=== PATIENT | female | born 1940 | race Hispanic/Latino ===

== ENCOUNTER 2016-11-28 07:20 | Emergency (ER) | payer MEDICARE, OTHER ==
[2016-11-28 07:20] VITALS: BMI 35.9
--- NOTE | 2016-11-28 07:46 | ED PDOC ---
Arrival/HPI - General Chief Complaint: Shortness Of Breath Time Seen by Provider: 11/28/16 07:25 Historian: Patient - History of Present Illness Narrative History of Present Illness (Text): 11/28/16 07:32 A 76 year old female, whose past medical history includes hyperkalemia and chronic shortness of breath, presents to the emergency department for worsening shortness of breath, which began early this morning. The patient denies any fever, chest pain, abdominal pain, neck pain, or any other complaints at this time. Time/Duration: 4-6 hours Symptom Onset: Sudden Symptom Course: Unchanged Activities at Onset: Rest, Light Context: Home Past Medical History - Provider Review Nursing Documentation Reviewed: Yes - Infectious Disease Hx of Infectious Diseases: None - Reproductive Menopause: Yes - Cardiac Hx Cardiac Disorders: Yes (mi) Hx Hypertension: Yes - Pulmonary Hx Respiratory Disorders: No - Neurological Hx Paralysis: No - Endocrine/Metabolic Hx Diabetes Mellitus Type 2: Yes Hx Hypothyroidism: Yes - Hematological/Oncological Hx Blood Transfusions: No Hx Blood Transfusion Reaction: No - Musculoskeletal/Rheumatological Hx Arthritis: Yes - Gastrointestinal Hx Gastrointestinal Disorders: Yes (colitis) Hx Gastroesophageal Reflux: Yes - Psychiatric Hx Emotional Abuse: No Hx Physical Abuse: No Hx Substance Use: No - Past Surgical History Past Surgical History: No Previous - Surgical History Hx Cardiac Catheterization: Yes Hx Coronary Stent: Yes (x1 5 yrs ago) Other/Comment: r adrenal gland removed, partial thyroidectomy, spinal fusion, toenail sx, egd x 2 colonoscopy x2 last 2014 - Anesthesia Hx Anesthesia: Yes Hx Anesthesia Reactions: No Hx Malignant Hyperthermia: No - Suicidal Assessment Feels Threatened In Home Enviroment: No Family/Social History - Physician Review Nursing Documentation Reviewed: Yes Family/Social History: Unknown Family HX Smoking Status: Former Smoker Hx Alcohol Use: No Hx Substance Use: No Hx Substance Use Treatment: No Allergies/Home Meds Allergies/Adverse Reactions: Allergies doxycycline Allergy (Intermediate, Verified 11/28/16 07:29) ITCHING indomethacin Allergy (Intermediate, Verified 11/28/16 07:29) NAUSEA Home Medications: Home Meds Medication Instructions Recorded Confirmed Rosuvastatin Calcium [Crestor] 5 mg PO HS 09/13/11 11/28/16 Cholecalciferol [Vitamin D] 1,000 iu PO DAILY 10/21/14 11/28/16 Dexlansoprazole [Dexilant] 60 mg PO QAM 10/21/14 11/28/16 Levothyroxine Sodium [Levoxyl] 0.075 mg PO DAILY 10/21/14 11/28/16 Magnesium Oxide [Pharmassure 1,500 mg PO DAILY 10/21/14 11/28/16 Magnesium] Mesalamine [Lialda] 1.2 gm PO Q12 02/11/15 11/28/16 Allopurinol [Zyloprim] 300 mg PO DAILY 06/28/15 11/28/16 Aspirin [Ecotrin] 81 mg PO DAILY 06/28/15 11/28/16 Chlorthalidone [Hygroton] 1.25 mg PO MWF 06/28/15 11/28/16 Insulin Human (NPH)/Regular 40 units SC ACB 06/28/15 06/30/15 [Novolin 70/30 (70/30 units/ml) 10 ml] Metoprolol Succinate [Toprol XL] 25 mg PO BID 06/28/15 11/28/16 Telmisartan [Micardis] 80 mg PO DAILY 06/28/15 11/28/16 Metoprolol [Lopressor] 25 mg PO BID 11/28/16 11/28/16 Patiromer Calcium Sorbitex 8.4 gm PO DAILY 11/28/16 11/28/16 [Velt[place]] Sodium Bicarbonate Tab 650 mg PO BID 11/28/16 11/28/16 Review of Systems - Review of Systems Constitutional: absent: Fevers Respiratory: SOB Cardiovascular: absent: Chest Pain Gastrointestinal: absent: Abdominal Pain Musculoskeletal: absent: Neck Pain Physical Exam Vital Signs Reviewed: Yes Vital Signs Temp Pulse Resp BP Pulse Ox 11/28/16 14:22 98 F 73 16 140/79 97 11/28/16 12:00 67 16 151/68 H 97 11/28/16 10:00 70 18 180/88 H 98 11/28/16 08:31 16 11/28/16 07:29 98.1 F 77 17 192/79 H 97 Temperature: Afebrile Blood Pressure: Hypertensive Pulse: Regular Respiratory Rate: Normal Appearance: Positive for: Well-Appearing, Non-Toxic, Comfortable Pain Distress: None Mental Status: Positive for: Alert and Oriented X 3 - Systems Exam Head: Present: Atraumatic, Normocephalic Pupils: Present: PERRL Extroacular Muscles: Present: EOMI Mouth: Present: Moist Mucous Membranes Neck: Present: Normal Range of Motion Respiratory/Chest: Present: Good Air Exchange, Other (crackles at the bases). No: Respiratory Distress, Accessory Muscle Use Cardiovascular: Present: Regular Rate and Rhythm, Normal S1, S2. No: Murmurs Abdomen: Present: Normal Bowel Sounds. No: Tenderness, Distention, Peritoneal Signs Upper Extremity: Present: Normal Inspection. No: Cyanosis, Edema Lower Extremity: Present: Normal Inspection. No: Edema Neurological: Present: GCS=15, CN II-XII Intact, Speech Normal Skin: Present: Warm, Dry, Normal Color. No: Rashes Psychiatric: Present: Alert, Oriented x 3, Normal Insight, Normal Concentration Medical Decision Making ED Course and Treatment: 11/28/16 07:45 Impression: A 76 year old female with shortness of breath Differential Diagnosis included but are not limited to: ro chf pna, pe Plan: -- EKG -- Chest X-ray -- Labs -- Urinalysis -- Reassess and disposition Progress Notes: EKG: Ordered, reviewed, and independently interpreted the EKG. Rate : 74 BPM Rhythm : Normal sinus Interpretation : First degree AV Evaristo Comparison : Nonspecific ST/T changes. Report Date : 11/28/2016 08:37:45 Chest X-ray Pyrotechnics Press Tender : Tristian Maldonado MD HISTORY:sob COMPARISON:Portable chest 06/28/2015. FINDINGS: LUNGS:No active pulmonary disease. PLEURA:No significant pleural effusion identified, no pneumothorax apparent. CARDIOVASCULAR:Likely technical magnification of the cardiac silhouette rather than intrinsic cardiomegaly. No pulmonary vascular derangement. Clinically correlate further. OSSEOUS STRUCTURES:No significant abnormalities. VISUALIZED UPPER ABDOMEN:Normal. OTHER FINDINGS:None. IMPRESSION:No acute pulmonary disease appreciable. Prominent cardiac silhouette may be a function of technical magnification rather than intrinsic cardiomegaly. Clinically correlate. 11/28/16 13:39 Upon re-evaluation, the patient states she is feeling better and is smiling. She is requesting to be discharged, but she is still pending VQ scan, The patient agrees to stay in the emergency department until results. pt was offered observation admission several times in emergency room but continues to decline. askinf for dc 11/28/16 14:38 - Lab Interpretations Lab Results: 11/28/16 08:25 11/28/16 08:25 Lab Results 11/28/16 09:04: D-Dimer, Quantitative 309 H 11/28/16 08:25: Sodium 141, Potassium 4.9, Chloride 107, Carbon Dioxide 22, Anion Gap 17, BUN 29 H, Creatinine 1.5 H, Est GFR ( Amer) 41, Est GFR ( Non-Af Amer) 34, Random Glucose 196 H, Calcium 9.9, Magnesium 1.3 L, Total Bilirubin 0.5, AST 54 H, ALT 60 H, Alkaline Phosphatase 83, Lactate Dehydrogenase 504, Total Creatine Kinase 166, Troponin I < 0.01, NT-Pro-B Natriuret Pep 202, Total Protein 7.6, Albumin 4.3, Globulin 3.3, Albumin/ Globulin Ratio 1.3 11/28/16 08:25: Urine Color Yellow, Urine Appearance Clear, Urine pH 6.0, Ur Specific [place] 1.020, Urine Protein 30 H, Urine Glucose (UA) Negative, Urine Ketones Negative, Urine Blood Negative, Urine Nitrate Negative, Urine Bilirubin Negative, Urine Urobilinogen 0.2, Ur Leukocyte Esterase Trace H, Urine RBC Negative, Urine WBC 1 - 3, Ur Epithelial Cells 1 - 3, Urine Bacteria Few 11/28/16 08:25: PT 11.8, INR 1.07, APTT 28.7 11/28/16 08:25: WBC 5.5, RBC 3.96, Hgb 12.2, Hct 36.6, MCV 92.4, MCH 30.8, MCHC 33.3, RDW 13.8, Plt Count 176, MPV 9.8, Gran % 58.3, Lymph % (Auto) 27.7, [place] % (Auto) 11.0 H, Eos % (Auto) 2.4, Baso % (Auto) 0.6, Gran # 3.18, Lymph # 1.5, [place] # 0.6, Eos # 0.1, Baso # 0.03 - RAD Interpretation Radiology Orders: 11/28/16 07:35 CHEST PORTABLE [RAD] Stat 11/28/16 11:35 LUNG PERF & VENT SCAN [NM] Stat - Medication Orders Current Medication Orders: Discontinued Medications Acetaminophen (Tylenol 325mg Tab) 975 mg PO STAT STA Stop: 11/28/16 09:23 Last Admin: 11/28/16 09:56 Dose: 975 mg MAR Pain/Vitals Document 11/28/16 09:56 [facility] [place] (Rec: 11/28/16 09:56 [facility] [place] [id number]) Pain Reassessment Is This A Pain ReAssessment? Yes Sleep Is patient sleeping during reassessment? No Presence of Pain Presence of Pain Yes Pain Scale Used Pain Scale Used Numeric Location Pain Location Body Site Back Intensity 3 Scale Used Numeric - Scribe Statement The provider has reviewed the documentation as recorded by the Jerica Finnegan Provider Scribe Attestation: All medical record entries made by the Jerica were at my direction and personally dictated by me. I have reviewed the chart and agree that the record accurately reflects my personal performance of the history, physical exam, medical decision making, and the department course for this patient. I have also personally directed, reviewed, and agree with the discharge instructions and disposition. Disposition/Present on Arrival - Present on Arrival Any Indicators Present on Arrival: No History of DVT/PE: No History of Uncontrolled Diabetes: No Urinary Catheter: No History of Decub. Ulcer: No History Surgical Site Infection Following: None - Disposition Have Diagnosis and Disposition been Completed?: Yes Diagnosis: Acute dyspnea Disposition: HOME/ ROUTINE Disposition Time: 02:00 Condition: STABLE Discharge Instructions (ExitCare): Dyspnea (ED) Additional Instructions: please follow up with your doctor. reutnr to emergency room with worsening symptoms or concerns. you are declining overnight observation in hospital, however you are able to return to emergency room at any point with any concern Forms: [employer] (Czech)
[2016-11-28 08:35] LABS: BASO # 0.03 K/mm3 (0.0-2.0); BASO % 0.6 % (0.0-3.0); EOS # 0.1 (0.0-0.7); EOS % 2.4 % (1.5-5.0); GRAN # 3.18 (1.4-6.5); GRAN % 58.3 % (50.0-68.0); HEMATOCRIT 36.6 % (36.0-48.0); LYMPH # 1.5 (1.2-3.4); LYMPH % 27.7 % (22.0-35.0); MEAN CELL VOLUME 92.4 fl (80.0-105.0); MEAN CORPUSCULAR HEMOGLOBIN 30.8 pg (25.0-35.0); MEAN CORPUSCULAR HGB CONC 33.3 g/dl (31.0-37.0); MEAN PLATELET VOLUME 9.8 fl (7.0-11.0); MONO # 0.6 (0.1-0.6); RED CELL DISTRIBUTION WIDTH 13.8 % (11.5-14.5); WHITE BLOOD COUNT 5.5 10^3/ul (4.5-11.0)
--- NOTE | 2016-11-28 08:39 | RAD ---
HISTORY: sob COMPARISON: Portable chest 06/28/2015. FINDINGS: LUNGS: No active pulmonary disease. PLEURA: No significant pleural effusion identified, no pneumothorax apparent. CARDIOVASCULAR: Likely technical magnification of the cardiac silhouette rather than intrinsic cardiomegaly. No pulmonary vascular derangement. Clinically correlate further. OSSEOUS STRUCTURES: No significant abnormalities. VISUALIZED UPPER ABDOMEN: Normal. OTHER FINDINGS: None. IMPRESSION: No acute pulmonary disease appreciable. Prominent cardiac silhouette may be a function of technical magnification rather than intrinsic cardiomegaly. Clinically correlate.
[2016-11-28 08:45] LABS: URINE BILIRUBIN NEGATIVE (NEGATIVE); URINE BLOOD NEGATIVE (NEGATIVE); URINE GLUCOSE (UA) NEGATIVE (NEGATIVE); URINE KETONE NEGATIVE (NEGATIVE); URINE LEUKOCYTE ESTERASE TRACE Leu/uL (NEGATIVE); URINE PROTEIN 30 mg/dL (<30 mg/dL); URINE UROBILINOGEN 0.2 E.U./dL (<1 E.U./dL)
[2016-11-28 08:47] LABS: INR 1.07 (0.93-1.08); PARTIAL THROMBOPLASTIN TIME 28.7 Seconds (25.1-36.5)
[2016-11-28 08:48] LABS: URINE APPEARANCE CLEAR (CLEAR); URINE COLOR YELLOW (YELLOW)
[2016-11-28 08:51] LABS: ALB/GLOB RATIO 1.3 (1.1-1.8); ALKALINE PHOSPHATASE 83 U/L (38-126); ALT/SGPT 60 U/L (7-56); AST/SGOT 54 U/L (14-36); BILIRUBIN,TOTAL 0.5 mg/dL (0.2-1.3); BLOOD UREA NITROGEN 29 mg/dL (7-21); CALCIUM 9.9 mg/dL (8.4-10.5); CARBON DIOXIDE 22 mmol/L (21-33); CHLORIDE 107 mmol/L (98-107); GFR AFRICAN-AMERICAN 41; GLUCOSE,RANDOM 196 mg/dL (70-110); MAGNESIUM 1.3 mg/dL (1.7-2.2); POTASSIUM 4.9 mmol/L (3.6-5.0); SODIUM 141 mmol/L (132-148); TOTAL PROTEIN 7.6 g/dL (5.8-8.3)
[2016-11-28 08:57] LABS: URINE BACTERIA FEW (NEG); URINE RBC NEGATIVE /hpf (0-2)
[2016-11-28 09:03] LABS: TROPONIN I < 0.01 ng/mL
[2016-11-28 12:43] VITALS: RESP 16; O2SAT 97
--- NOTE | 2016-11-28 12:58 | CARD ---
APPROVED REPORT EKG Measurement Heart [id number] <Conclusion> Sinus rhythm with 1st degree AV block Left axis deviation PRWP IVCD Possible ASMI, age unknown
--- NOTE | 2016-11-28 14:07 | NM ---
COMPARISON: Chest radiograph 11/28/2016. TECHNIQUE: 31.0 mCi technetium 99-m Xe-133 Gas. 3.6 mCI technetium 99-m MAA administered intravenously. FINDINGS: VENTILATION COMPONENT: Normal. Deposition of the inhalation isotope at the trachea is identified as well as ingestion into the stomach. PERFUSION COMPONENT: No perfusion mismatches identified. IMPRESSION: Lowprobability ventilation perfusion scan for pulmonary embolism.
[2016-11-28 14:22] VITALS: BP 140/79; PULSE 73; TEMP 98
== END 2016-11-28 14:23 | disposition home or self-care (01) ==
LOC: ED 07:20
DX: R06.00 Dyspnea, unspecified (principal); E03.9 Hypothyroidism, unspecified; E11.9 Type 2 diabetes mellitus without complications; Z79.4 Long term (current) use of insulin; E87.5 Hyperkalemia; I10 Essential (primary) hypertension; I44.0 Atrioventricular block, first degree; Z87.891 Personal history of nicotine dependence; Z79.82 Long term (current) use of aspirin
CPT/HCPCS: 71010; 78582; 80053; 81001; 82550; 83615; 83735; 83880; 84484; 85025; 85378; 85610; 85730; 87086; 93005; 99284; A9540

== ENCOUNTER 2017-12-30 08:57 | Observation (INO) | payer MEDICARE ==
[2017-12-30 09:01] VITALS: BMI 37.8
--- NOTE | 2017-12-30 09:20 | ED PDOC ---
Arrival/HPI - General Chief Complaint: Chest Pain Historian: Patient - History of Present Illness Narrative History of Present Illness (Text): 12/30/17 09:12 77 y/o female, pmh including htn/hld/dm/cad with stent/hypothyroidism/CHF with EF 35% in 2016/colitis, allergic to indomethacin and doxycycline, c/o lt. sided chest pain started 2:30am this morning which woke her up from sleeping, aching and squeezing pain, on and off, worsening with exertion when came to the ER by walking, no palpitation, no recent traveling, no recent URI, no night sweat, no rash, no dizziness, no change in vision, no other medical or psychological complaints. Past Medical History - Provider Review Nursing Documentation Reviewed: Yes - Infectious Disease Hx of Infectious Diseases: None - Cardiac Hx Cardiac Disorders: Yes (mi) Hx Hypertension: Yes - Pulmonary Hx Respiratory Disorders: No - Neurological Hx Paralysis: No - Endocrine/Metabolic Hx Diabetes Mellitus Type 2: Yes Hx Hypothyroidism: Yes - Hematological/Oncological Hx Blood Transfusions: No Hx Blood Transfusion Reaction: No - Musculoskeletal/Rheumatological Hx Arthritis: Yes - Gastrointestinal Hx Gastrointestinal Disorders: Yes (colitis) Hx Gastroesophageal Reflux: Yes - Psychiatric Hx Emotional Abuse: No Hx Physical Abuse: No Hx Substance Use: No - Past Surgical History Past Surgical History: No Previous - Surgical History Hx Cardiac Catheterization: Yes Hx Coronary Stent: Yes (x1 5 yrs ago) Other/Comment: r adrenal gland removed, partial thyroidectomy, spinal fusion, toenail sx, egd x 2 colonoscopy x2 last 2014 - Anesthesia Hx Anesthesia: Yes Hx Anesthesia Reactions: No Hx Malignant Hyperthermia: No - Suicidal Assessment Feels Threatened In Home Enviroment: No Family/Social History - Physician Review Nursing Documentation Reviewed: Yes Family/Social History: Unknown Family HX Smoking Status: Former Smoker Hx Alcohol Use: No Hx Substance Use: No Hx Substance Use Treatment: No Allergies/Home Meds Allergies/Adverse Reactions: Allergies doxycycline Allergy (Intermediate, Verified 12/30/17 09:21) ITCHING indomethacin Allergy (Intermediate, Verified 12/30/17 09:21) NAUSEA Home Medications: Home Meds Medication Instructions Recorded Confirmed Cholecalciferol [Vitamin D] 1,000 iu PO DAILY 10/21/14 12/30/17 Dexlansoprazole [Dexilant] 60 mg PO QAM 10/21/14 12/30/17 Levothyroxine Sodium [Levoxyl] 0.075 mg PO DAILY 10/21/14 12/30/17 Magnesium Oxide [Pharmassure 1,500 mg PO DAILY 10/21/14 12/30/17 Magnesium] Mesalamine [Lialda] 1.2 gm PO Q12 02/11/15 12/30/17 Allopurinol [Zyloprim] 300 mg PO DAILY 06/28/15 12/30/17 Aspirin [Ecotrin] 81 mg PO DAILY 06/28/15 12/30/17 Chlorthalidone [Hygroton] 1.25 mg PO MWF 06/28/15 12/30/17 Insulin Human (NPH)/Regular 45 units SC ACB 06/28/15 12/30/17 [Novolin 70/30 (70/30 units/ml) 10 ml] Telmisartan [Micardis] 80 mg PO DAILY 06/28/15 12/30/17 Metoprolol [Lopressor] 50 mg PO BID 11/28/16 12/30/17 Review of Systems - Review of Systems Constitutional: absent: Fatigue, Fevers Eyes: absent: Vision Changes ENT: absent: Hearing Changes Respiratory: absent: SOB, Cough Cardiovascular: Chest Pain Gastrointestinal: absent: Abdominal Pain, Nausea, Vomiting Musculoskeletal: absent: Arthralgias, Back Pain Skin: absent: Rash, Pruritis Neurological: absent: Headache, Dizziness Psychiatric: absent: Anxiety, Depression, Suicidal Ideation Physical Exam Vital Signs Reviewed: Yes Vital Signs Temp Pulse Resp BP Pulse Ox 12/30/17 09:01 97.6 F 70 18 188/90 H 99 Temperature: Afebrile Blood Pressure: Hypertensive Pulse: Regular Respiratory Rate: Normal Appearance: Positive for: Well-Appearing, Non-Toxic, Comfortable Pain Distress: None Mental Status: Positive for: Alert and Oriented X 3 - Systems Exam Head: Present: Atraumatic, Normocephalic Pupils: Present: PERRL Extroacular Muscles: Present: EOMI Conjunctiva: Present: Normal Mouth: Present: Moist Mucous Membranes Neck: Present: Normal Range of Motion Respiratory/Chest: Present: Clear to Auscultation, Good Air Exchange. No: Respiratory Distress, Accessory Muscle Use, Wheezes, Decreased Breath Sounds, Rales, Retracting, Rhonchi, Tachypneic, Tender to Palpation Cardiovascular: Present: Regular Rate and Rhythm, Normal S1, S2, Other (1+ pedal edema noted bilaterally on the lower extremities. ). No: Murmurs Abdomen: No: Tenderness, Distention, Peritoneal Signs Back: Present: Normal Inspection Upper Extremity: Present: Normal Inspection. No: Cyanosis, Edema Lower Extremity: Present: Normal Inspection. No: Edema Neurological: Present: GCS=15, CN II-XII Intact, Speech Normal, Motor Func Grossly Intact, Gait Normal, Memory Normal Skin: Present: Warm, Dry, Normal Color. No: Rashes Psychiatric: Present: Alert, Oriented x 3, Normal Insight, Normal Concentration Medical Decision Making ED Course and Treatment: 12/30/17 09:14 -labs -ekg -cxr -aspirin/morphine/nitro -observe and reassess 12/30/17 10:54 -EKG: SR @ 66 BPM, 1st degree AV block, no ST elevation or depression, no t wave inversion. -CXR No focal consolidation. Cardiomegaly. -Labs show no acute findings except BUN 27 from 29 and creatine 1.3 from 1.5 -Mg is 1.3 (mgsulfate 2gm IV ordered) -BNP is within normal limit -Trop is negative for 1st set, needs trending -UA ordered and pending result -HEART score is MODERATE: 5 -Pt. feels symptoms controlled after the aspirin/nitro/morphine, clinically signs and symptoms/treatment concerning for ACS, will admit for 24 hours with associate creative director consult. -Paging Dr. Bernabe, covering for Dr. Rodarte for admission for chest pain r/o ACS. 12/30/17 11:39 -I spoke to Dr. Lin, covering for Dr. Bernabe, discussed about the case/labs/radiology results and treatment, agreed to admit to Dr. Bernabe service with Dr. Guadarrama on the routine consult, consult ordered. - RAD Interpretation Radiology Orders: HISTORY: chest pain COMPARISON: Chest x-ray performed 11/28/16 TECHNIQUE: Chest, one view. FINDINGS: LUNGS: No focal consolidation. Please note that chest x-ray has limited sensitivity for the detection of pulmonary masses. PLEURA: No significant pleural effusion identified. No definite pneumothorax . CARDIOVASCULAR: Cardiomegaly. No significant atherosclerotic calcification present. OSSEOUS STRUCTURES: Degenerative changes of the spine. 9 mm sclerotic focus, proximal humerus, likely bone island. VISUALIZED UPPER ABDOMEN: Unremarkable. OTHER FINDINGS: None. IMPRESSION: No focal consolidation. Cardiomegaly. Vibration Engineer: Radiologist - PA / LOADER TECHNICIAN / Resident Statement MD/DO has reviewed & agrees with the documentation as recorded. Disposition/Present on Arrival - Present on Arrival Any Indicators Present on Arrival: No History of DVT/PE: No History of Uncontrolled Diabetes: No Urinary Catheter: No History of Decub. Ulcer: No History Surgical Site Infection Following: None - Disposition Have Diagnosis and Disposition been Completed?: Yes Diagnosis: Chest pain in adult, Hypomagnesemia Disposition: HOSPITALIZED Disposition Time: 10:57 Patient Plan: Admission, Observation, Telemetry Patient Problems: Current Active Problems Problem Status Onset Chest pain in adult Acute Hypomagnesemia Acute Condition: STABLE
[2017-12-30] MEDS ORDERED: Morphine 4 mg/ml ISec IVP STA (09:21)
[2017-12-30 10:08] LABS: BASO # 0.02 K/mm3 (0.0-2.0); BASO % 0.4 % (0.0-3.0); EOS % 0.6 % (1.5-5.0); GRAN # 3.16 (1.4-6.5); GRAN % 61.7 % (50.0-68.0); HEMOGLOBIN 12.3 g/dL (12.0-16.0); LYMPH # 1.4 (1.2-3.4); LYMPH % 27.5 % (22.0-35.0); MEAN CELL VOLUME 94.1 fl (80.0-105.0); MEAN CORPUSCULAR HEMOGLOBIN 31.5 pg (25.0-35.0); MEAN CORPUSCULAR HGB CONC 33.5 g/dl (31.0-37.0); MEAN PLATELET VOLUME 10.2 fl (7.0-11.0); MONO # 0.5 (0.1-0.6); MONO % 9.8 % (1.0-6.0); RBC 3.9 10^6/uL (3.5-6.1); RED CELL DISTRIBUTION WIDTH 13.9 % (11.5-14.5); WHITE BLOOD COUNT 5.1 10^3/uL (4.5-11.0)
[2017-12-30 10:10] LABS: ALB/GLOB RATIO 1.1 (1.1-1.8); ALBUMIN 4.3 g/dL (3.0-4.8); ALT/SGPT 55 U/L (7-56); AST/SGOT 44 U/L (14-36); BLOOD UREA NITROGEN 27 mg/dL (7-21); CALCIUM 9.5 mg/dL (8.4-10.5); GFR NON-AFRICAN AMERICAN 40; LIPASE 148 U/L (23-300)
[2017-12-30 10:21] LABS: TROPONIN I < 0.01 ng/mL
[2017-12-30] MEDS ORDERED: Magnesium Sulfate 2 gm/50 ml 2 GM/50 ML BAG IVPB ONE (10:38)
--- NOTE | 2017-12-30 12:44 | RAD ---
HISTORY: chest pain COMPARISON: Chest x-ray performed 11/28/16 TECHNIQUE: Chest, one view. FINDINGS: LUNGS: No focal consolidation. Please note that chest x-ray has limited sensitivity for the detection of pulmonary masses. PLEURA: No significant pleural effusion identified. No definite pneumothorax . CARDIOVASCULAR: Cardiomegaly. No significant atherosclerotic calcification present. OSSEOUS STRUCTURES: Degenerative changes of the spine. 9 mm sclerotic focus, proximal humerus, likely bone island. VISUALIZED UPPER ABDOMEN: Unremarkable. OTHER FINDINGS: None. IMPRESSION: No focal consolidation. Cardiomegaly.
[2017-12-30] MEDS ORDERED: Levothyroxine 75 MCG TAB PO SCH (13:00)
[2017-12-30] MEDS ORDERED: Non Formulary Medication (Telmisartan [Micardis] 80 MG) PO SCH (13:00)
[2017-12-30 13:29] LABS: PH,URINE 5.5 (4.7-8.0); URINE BILIRUBIN NEGATIVE (NEGATIVE); URINE BLOOD NEGATIVE (NEGATIVE); URINE GLUCOSE (UA) NEGATIVE (NEGATIVE); URINE LEUKOCYTE ESTERASE NEGATIVE Leu/uL (NEGATIVE); URINE PROTEIN 30 mg/dL (<30 mg/dL); URINE UROBILINOGEN 0.2 E.U./dL (<1 E.U./dL)
[2017-12-30 13:30] LABS: URINE APPEARANCE CLEAR (CLEAR); URINE COLOR YELLOW (YELLOW)
[2017-12-30 13:36] LABS: URINE BACTERIA FEW (NEG); URINE RBC 0 - 2 /hpf (0-2)
[2017-12-30] MEDS: Insulin Human NPH/Reg 70/30 Vial(3 ml) SC SCH (13:47)
--- NOTE | 2017-12-30 13:58 | HP ---
DATE OF EXAM: 12/30/2017 HISTORY OF PRESENT ILLNESS: Ms. Mccartney is a 77-year-old female, presented to the ED with left-sided chest pain, since this morning when she woke up with radiating to the left arm. No fever. No cough with expectoration. She has history of hypertension. Blood pressure controlled with current medication, history of coronary artery disease with stent placement. History of CHF with ejection fraction of 35%. On echocardiogram done in 2016, she followed with Dr. Guadarrama, Cardiology as outpatient. PAST MEDICAL HISTORY: Hypertension, coronary artery disease, diabetes mellitus type II, hypothyroidism, GE reflux and history of colitis. PAST SURGICAL HISTORY: Coronary artery stent placement, right removed, partial thyroidectomy and spinal fusion surgery. FAMILY HISTORY: Noncontributory. PERSONAL HISTORY: Former smoker. No history of alcohol abuse. ALLERGIES: DOXYCYCLINE, INDOMETHACIN. HOME MEDICATIONS: Cholecalciferol, Synthroid 75 mcg daily, magnesium, allopurinol 300 mg daily, mesalamine 1.2 g p.o. every 12 hours, insulin Micardis, metoprolol 50 mg p.o. twice daily. REVIEW OF SYSTEMS: As per HPI. Rest of 12 point review of systems reviewed, negative. PHYSICAL EXAMINATION: GENERAL: Comfortable in bed, in no acute distress. VITAL SIGNS: Temperature 98.7, heart rate 70 per minute, respiratory rate 15 per minute, blood pressure 160/70 and oxygen saturation 99% on room air. HEENT: Pallor positive. NECK: No lymphadenopathy. CHEST: Air entry present and equal bilaterally. No added sound. CARDIOVASCULAR: S1 and S2 normal. No murmur. No gallop. ABDOMEN: Soft and nontender. No hepatosplenomegaly. EXTREMITIES: No edema. SKIN: Warm and dry. No rashes. CENTRAL NERVOUS SYSTEM: Alert and oriented x3. No focal sensorimotor deficits. SPINE: Nontender. EKG, heart rate 66 per minute, first-degree AV block. No ST elevation. No ST-T changes. Troponin is negative. LABORATORY DATA: White count 12.1, hemoglobin 12.3, hematocrit 36.7, MCV 94 and platelet count 173,000. Monocyte found elevated at 9%, granulocyte 61% and lymphocyte 27%. Sodium 140, potassium 4.6, creatinine 1.3, magnesium 1.3, AST 44, ALT 55, troponin first set negative . ASSESSMENT AND PLAN: 1. Chest pain, left-sided history of coronary artery disease. 2. Hypertension. 3. Hypothyroidism. 4. Hypomagnesemia. 5. Renal insufficiency and will be admitted to tele floor, we will do the telemonitoring. Continue aspirin 81 mg daily. She received nitroglycerin in the ER. No chest pain right now, Cardiology consultation with Dr. Guadarrama requested. Continue Synthroid 75 mcg daily, aspirin 81 mg daily, Cozaar 100 mg p.o. twice daily, also metoprolol 50 mg p.o. twice daily. Monitor cardiac enzyme first set of negative, next set order for 3:00 p.m., third set will be in the morning. Yoli Lin MD
[2017-12-31 01:49] VITALS: RESP 20
[2017-12-31] MEDS ORDERED: Levothyroxine 75 MCG TAB PO SCH (06:00)
[2017-12-31 06:28] VITALS: TEMP 98.1; O2SAT 94
[2017-12-31 07:22] LABS: BASO # 0.01 K/mm3 (0.0-2.0); BASO % 0.2 % (0.0-3.0); EOS % 0.7 % (1.5-5.0); GRAN # 3.72 (1.4-6.5); GRAN % 60.7 % (50.0-68.0); HEMOGLOBIN 11.8 g/dL (12.0-16.0); LYMPH # 1.8 (1.2-3.4); LYMPH % 28.8 % (22.0-35.0); MEAN CELL VOLUME 93.7 fl (80.0-105.0); MEAN CORPUSCULAR HGB CONC 33.1 g/dl (31.0-37.0); MONO # 0.6 (0.1-0.6); MONO % 9.6 % (1.0-6.0); RBC 3.81 10^6/uL (3.5-6.1); WHITE BLOOD COUNT 6.1 10^3/uL (4.5-11.0)
[2017-12-31 07:38] LABS: ALB/GLOB RATIO 1.1 (1.1-1.8); ALBUMIN 3.9 g/dL (3.0-4.8); ALT/SGPT 50 U/L (7-56); AST/SGOT 46 U/L (14-36); BLOOD UREA NITROGEN 30 mg/dL (7-21); CALCIUM 9.4 mg/dL (8.4-10.5); GFR NON-AFRICAN AMERICAN 33
[2017-12-31 07:45] LABS: TROPONIN I < 0.01 ng/mL
--- NOTE | 2017-12-31 08:05 | CARD ---
APPROVED REPORT Date of service: 12/30/2017 EKG Measurement Heart [id number] <Conclusion> Sinus rhythm with 1st degree AV block Left axis deviation PRWP V1 -6. Probably lead placement. No change
[2017-12-31] MEDS: Insulin Human NPH/Reg 70/30 Vial(3 ml) SC SCH (08:18)
[2017-12-31] MEDS ORDERED: Magnesium Sulfate 2 GM in Sodium Chloride 0.9% 100 ML IV ONE (08:18)
[2017-12-31] MEDS: (Dexlansoprazole [Dexilant] 60 MG) PO SCH ×2 (08:23→09:11)
[2017-12-31] MEDS ORDERED: Magnesium Sulfate 2 GM in 50 ml Water IVPB ONE (08:30)
[2017-12-31 09:25] VITALS: BP 142/73; PULSE 67
[2017-12-31] MEDS ORDERED: TELMISARTAN 80MG PO SCH (10:00)
--- NOTE | 2017-12-31 10:07 | CP.PCM.DIS ---
<Brian Winkler - Last Filed: 12/31/17 19:08> Provider - Provider Date of Admission: 12/30/17 11:35 Attending physician: Sridhar Torrez MD Primary care physician: Dr. Rodarte Consults: Cardio: Abiodun Time Spent in preparation of Discharge (in minutes): 35 Diagnosis - Discharge Diagnosis (1) Chest pain in adult Status: Resolved Priority: High (2) Hyperkalemia Status: Resolved Priority: Medium (3) Hypomagnesemia Status: Resolved Priority: Medium (4) Shortness of breath Status: Resolved Priority: High Hospital Course - Lab Results Lab Results: Most Recent Lab Values WBC 6.1 10^3/uL (4.5-11.0) 12/31/17 06:45 RBC 3.81 10^6/uL (3.5-6.1) 12/31/17 06:45 Hgb 11.8 g/dL (12.0-16.0) L 12/31/17 06:45 Hct 35.7 % (36.0-48.0) L 12/31/17 06:45 MCV 93.7 fl (80.0-105.0) 12/31/17 06:45 MCH 31.0 pg (25.0-35.0) 12/31/17 06:45 MCHC 33.1 g/dl (31.0-37.0) 12/31/17 06:45 RDW 14.0 % (11.5-14.5) 12/31/17 06:45 Plt Count 177 10^3/uL (120.0-450.0) 12/31/17 06:45 MPV 10.0 fl (7.0-11.0) 12/31/17 06:45 Gran % 60.7 % (50.0-68.0) 12/31/17 06:45 Lymph % (Auto) 28.8 % (22.0-35.0) 12/31/17 06:45 [place] % (Auto) 9.6 % (1.0-6.0) H 12/31/17 06:45 Eos % (Auto) 0.7 % (1.5-5.0) L 12/31/17 06:45 Baso % (Auto) 0.2 % (0.0-3.0) 12/31/17 06:45 Gran # 3.72 (1.4-6.5) 12/31/17 06:45 Lymph # (Auto) 1.8 (1.2-3.4) 12/31/17 06:45 [place] # (Auto) 0.6 (0.1-0.6) 12/31/17 06:45 Eos # (Auto) 0.0 (0.0-0.7) 12/31/17 06:45 Baso # (Auto) 0.01 K/mm3 (0.0-2.0) 12/31/17 06:45 Sodium 138 mmol/L (132-148) 12/31/17 06:45 Potassium 4.5 mmol/L (3.6-5.0) 12/31/17 06:45 Chloride 104 mmol/L (98-107) 12/31/17 06:45 Carbon Dioxide 25 mmol/L (21-33) 12/31/17 06:45 Anion Gap 14 (10-20) 12/31/17 06:45 BUN 30 mg/dL (7-21) H 12/31/17 06:45 Creatinine 1.5 mg/dl (0.7-1.2) H 12/31/17 06:45 Est GFR ( Amer) 41 12/31/17 06:45 Est GFR (Non-Af Amer) 33 12/31/17 06:45 POC Glucose (mg/dL) 154 mg/dL (65-110) H 12/31/17 07:45 Random Glucose 172 mg/dL (70-110) H 12/31/17 06:45 Calcium 9.4 mg/dL (8.4-10.5) 12/31/17 06:45 Magnesium 1.5 mg/dL (1.7-2.2) L 12/31/17 06:45 Total Bilirubin 0.7 mg/dL (0.2-1.3) 12/31/17 06:45 AST 46 U/L (14-36) H 12/31/17 06:45 ALT 50 U/L (7-56) 12/31/17 06:45 Alkaline Phosphatase 87 U/L (38-126) 12/31/17 06:45 Lactate Dehydrogenase 536 U/L (333-699) 12/30/17 09:15 Total Creatine Kinase 153 U/L (35-230) 12/30/17 09:15 Troponin I < 0.01 ng/mL 12/31/17 06:45 NT-Pro-B Natriuret Pep 311 pg/mL (0-450) 12/30/17 09:15 Total Protein 7.5 g/dL (5.8-8.3) 12/31/17 06:45 Albumin 3.9 g/dL (3.0-4.8) 12/31/17 06:45 Globulin 3.6 gm/dL 12/31/17 06:45 Albumin/Globulin Ratio 1.1 (1.1-1.8) 12/31/17 06:45 Lipase 148 U/L (23-300) 12/30/17 09:15 Urine Color Yellow (YELLOW) 12/30/17 13:00 Urine Appearance Clear (CLEAR) 12/30/17 13:00 Urine pH 5.5 (4.7-8.0) 12/30/17 13:00 Ur Specific [place] 1.015 (1.005-1.035) 12/30/17 13:00 Urine Protein 30 mg/dL (<30 mg/dL) H 12/30/17 13:00 Urine Glucose (UA) Negative mg/dL (NEGATIVE) 12/30/17 13:00 Urine Ketones Negative mg/dL (NEGATIVE) 12/30/17 13:00 Urine Blood Negative (NEGATIVE) 12/30/17 13:00 Urine Nitrate Negative (NEGATIVE) 12/30/17 13:00 Urine Bilirubin Negative (NEGATIVE) 12/30/17 13:00 Urine Urobilinogen 0.2 E.U./dL (<1 E.U./dL) 12/30/17 13:00 Ur Leukocyte Esterase Negative Rachel/uL (NEGATIVE) 12/30/17 13:00 Urine RBC 0 - 2 /hpf (0-2) 12/30/17 13:00 Urine WBC 1 - 3 /hpf (0-6) 12/30/17 13:00 Ur Epithelial Cells 4 - 5 /hpf (0-5) 12/30/17 13:00 Urine Bacteria Few (NEG) 12/30/17 13:00 - Hospital Course Hospital Course: Discharge Summary for Dr. Torrez Service This is a 77 yo F with PMh of HTN, CAD s/p stents, DMII, Hypothyroidism, GERD, CHF with EF 35%, CKD, and Hx Colitis who presented for left-sided chest pain radiating to left arm. While here, she was also seen by Cardio. Trops x3 are negative, and EKG was negative for ST-segment changes. As per Cardio, not ACS, safe for discharge. She was also found to have low magnesium, which was repleted. She was given a script for Mag-ox BID x10 days, and was instructed to resume her home meds as previously prescribed. She was also instructed to follow up with her PMD within 1 week, and Cardiology as soon as possible. She expressed understanding and agreement. All questions were answered to her satisfaction, then she was discharged. Patient reviewed and discussed with attending, Dr. Torrez. Discharge Exam - Head Exam Head Exam: ATRAUMATIC, NORMAL INSPECTION, NORMOCEPHALIC - Eye Exam Eye Exam: EOMI, Normal appearance. absent: Conjunctival injection, Scleral icterus Pupil Exam: absent: Irregular, Unequal - ENT Exam ENT Exam: Mucous Membranes Moist - Neck Exam Neck exam: Full Rom, Normal Inspection - Respiratory Exam Respiratory Exam: Clear to PA & Lateral, NORMAL BREATHING PATTERN, UNREMARKABLE. absent: Accessory Muscle Use, Chest Wall Tenderness, Decreased Breath Sounds, Rales, Rhonchi, Wheezes - Cardiovascular Exam Cardiovascular Exam: REGULAR RHYTHM, RRR, +S1, +S2. absent: Bradycardia, Tachycardia, Irregular Rhythm, JVD, +S4 - GI/Abdominal Exam GI & Abdominal Exam: Normal Bowel Sounds, Soft, Unremarkable. absent: Diminished Bowel Sounds, Distended, Firm, Hyperactive Bowel Sounds, Hypoactive Bowel Sounds, Rigid, Tenderness - Extremities Exam Extremities exam: normal capillary refill, normal inspection, pedal pulses present - Neurological Exam Neurological exam: Alert, Oriented x3 - Psychiatric Exam Psychiatric exam: Normal Affect, Normal Mood - Skin Skin Exam: Dry, Intact, Normal Color, Warm Discharge Plan - Discharge Medications Prescriptions: RX: Magnesium Oxide [Mag-Ox] 400 mg PO BID #20 tab - Follow Up Plan Condition: STABLE Disposition: HOME/ ROUTINE Instructions: Chest Pain (DC), Low Magnesium Level (DC) Additional Instructions: You were seen in the hospital for your left-sided chest pain radiating to your left arm. Workup including blood testing, an EKG, and examination by a ciaio lumite injector indicate that your pain is not cardiac in nature. Your blood testing did reveal a low level of magnesium; you have been given a script for a magnesium supplement to be taken twice a day for the next 10 days. Please resume all home medications as previously prescribed. Please follow up with your primary medical doctor (Dr. Rodarte) within 1 week, and with your [employer] (Dr. Rascon) when you can next make an appointment. Please present to the nearest emergency department if you experience worsening or newly concerning symptoms. Referrals: Vince Guadarrama MD [Staff Provider] - Cora Rodarte MD [Family Provider] - <Sridhar Torrez - Last Filed: 12/31/17 21:14> Provider - Provider Date of Admission: 12/30/17 11:35 Attending physician: Sridhar Torrez MD Hospital Course - Lab Results Lab Results: Most Recent Lab Values WBC 6.1 10^3/uL (4.5-11.0) 12/31/17 06:45 RBC 3.81 10^6/uL (3.5-6.1) 12/31/17 06:45 Hgb 11.8 g/dL (12.0-16.0) L 12/31/17 06:45 Hct 35.7 % (36.0-48.0) L 12/31/17 06:45 MCV 93.7 fl (80.0-105.0) 12/31/17 06:45 MCH 31.0 pg (25.0-35.0) 12/31/17 06:45 MCHC 33.1 g/dl (31.0-37.0) 12/31/17 06:45 RDW 14.0 % (11.5-14.5) 12/31/17 06:45 Plt Count 177 10^3/uL (120.0-450.0) 12/31/17 06:45 MPV 10.0 fl (7.0-11.0) 12/31/17 06:45 Gran % 60.7 % (50.0-68.0) 12/31/17 06:45 Lymph % (Auto) 28.8 % (22.0-35.0) 12/31/17 06:45 [place] % (Auto) 9.6 % (1.0-6.0) H 12/31/17 06:45 Eos % (Auto) 0.7 % (1.5-5.0) L 12/31/17 06:45 Baso % (Auto) 0.2 % (0.0-3.0) 12/31/17 06:45 Gran # 3.72 (1.4-6.5) 12/31/17 06:45 Lymph # (Auto) 1.8 (1.2-3.4) 12/31/17 06:45 [place] # (Auto) 0.6 (0.1-0.6) 12/31/17 06:45 Eos # (Auto) 0.0 (0.0-0.7) 12/31/17 06:45 Baso # (Auto) 0.01 K/mm3 (0.0-2.0) 12/31/17 06:45 Sodium 138 mmol/L (132-148) 12/31/17 06:45 Potassium 4.5 mmol/L (3.6-5.0) 12/31/17 06:45 Chloride 104 mmol/L (98-107) 12/31/17 06:45 Carbon Dioxide 25 mmol/L (21-33) 12/31/17 06:45 Anion Gap 14 (10-20) 12/31/17 06:45 BUN 30 mg/dL (7-21) H 12/31/17 06:45 Creatinine 1.5 mg/dl (0.7-1.2) H 12/31/17 06:45 Est GFR ( Amer) 41 12/31/17 06:45 Est GFR (Non-Af Amer) 33 12/31/17 06:45 POC Glucose (mg/dL) 154 mg/dL (65-110) H 12/31/17 07:45 Random Glucose 172 mg/dL (70-110) H 12/31/17 06:45 Calcium 9.4 mg/dL (8.4-10.5) 12/31/17 06:45 Magnesium 1.5 mg/dL (1.7-2.2) L 12/31/17 06:45 Total Bilirubin 0.7 mg/dL (0.2-1.3) 12/31/17 06:45 AST 46 U/L (14-36) H 12/31/17 06:45 ALT 50 U/L (7-56) 12/31/17 06:45 Alkaline Phosphatase 87 U/L (38-126) 12/31/17 06:45 Lactate Dehydrogenase 536 U/L (333-699) 12/30/17 09:15 Total Creatine Kinase 153 U/L (35-230) 12/30/17 09:15 Troponin I < 0.01 ng/mL 12/31/17 06:45 NT-Pro-B Natriuret Pep 311 pg/mL (0-450) 12/30/17 09:15 Total Protein 7.5 g/dL (5.8-8.3) 12/31/17 06:45 Albumin 3.9 g/dL (3.0-4.8) 12/31/17 06:45 Globulin 3.6 gm/dL 12/31/17 06:45 Albumin/Globulin Ratio 1.1 (1.1-1.8) 12/31/17 06:45 Lipase 148 U/L (23-300) 12/30/17 09:15 Urine Color Yellow (YELLOW) 12/30/17 13:00 Urine Appearance Clear (CLEAR) 12/30/17 13:00 Urine pH 5.5 (4.7-8.0) 12/30/17 13:00 Ur Specific [place] 1.015 (1.005-1.035) 12/30/17 13:00 Urine Protein 30 mg/dL (<30 mg/dL) H 12/30/17 13:00 Urine Glucose (UA) Negative mg/dL (NEGATIVE) 12/30/17 13:00 Urine Ketones Negative mg/dL (NEGATIVE) 12/30/17 13:00 Urine Blood Negative (NEGATIVE) 12/30/17 13:00 Urine Nitrate Negative (NEGATIVE) 12/30/17 13:00 Urine Bilirubin Negative (NEGATIVE) 12/30/17 13:00 Urine Urobilinogen 0.2 E.U./dL (<1 E.U./dL) 12/30/17 13:00 Ur Leukocyte Esterase Negative Rachel/uL (NEGATIVE) 12/30/17 13:00 Urine RBC 0 - 2 /hpf (0-2) 12/30/17 13:00 Urine WBC 1 - 3 /hpf (0-6) 12/30/17 13:00 Ur Epithelial Cells 4 - 5 /hpf (0-5) 12/30/17 13:00 Urine Bacteria Few (NEG) 12/30/17 13:00 - Hospital Course Hospital Course: Pt seen and examined. I have reviewed the note of the senior medical transcriptionist and agree with it. I have discussed the assessment and plan with the resident. I have reviewed the patient's labs and medications. Pt with atypical with CP.She was seen by Dr Munoz and cleared her for discharge. SHe had low Mg and it was replaced. She will get PO MgOxide. He had trop that were negative. She does have a hx of CAD.
--- NOTE | 2017-12-31 12:50 | CON ---
DATE: 12/31/2017 INDICATIONS: Chest pain. 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 This improved during the night with a neck pillow and Tylenol. The symptoms are gone this morning. She feels the symptoms were related to her chronic neck problem rather than a cardiac pain. There is no shortness of breath, orthopnea, PND, syncope, presyncope, lightheadedness, dizziness, vertigo, palpitation, edema, claudication. PAST MEDICAL HISTORY: Notable for coronary artery disease with a remote apical myocardial infarction. She has had coronary intervention on her LAD. She has left ventricular dysfunction with an ejection fraction of 35% in the past. Her most recent echo, however, in 2016 at [facility], revealed normal LV function at that time. There is a history of congestive heart failure, hypertension, diabetes, chronic kidney disease, hypomagnesemia, hyperlipidemia, hypothyroidism, spinal stenosis. She has had surgery on her back, thyroidectomy, and adrenalectomy MEDICATIONS: At the time of admission include Crestor, aspirin, Dexilant, Humulin, Hygroton, Levoxyl, Lialda, Lopressor, Mag-Ox, Micardis, Novolin, Veltassa, Tylenol, vitamin D, Zyloprim. ALLERGIES: SHE NOTES ALLERGIES TO INDOMETHACIN AND DOXYCYCLINE. SOCIAL HISTORY: She lives at home. She is ambulatory but limited. She does not smoke cigarettes. She does not drink alcohol. REVIEW OF SYSTEMS: A 10-point review of systems otherwise unremarkable except as noted above. FAMILY HISTORY: Noncontributory. PHYSICAL EXAMINATION GENERAL: She is a well-developed woman, sitting on the bed in telemetry, in no acute distress. VITAL SIGNS: Notable for sinus rhythm in the 60's, afebrile, blood pressure 140/48, respirations 20, O2 sat 94% to 95% on room air. HEENT: Reveals no neck vein distention, thyromegaly, carotid bruits. Mucous membranes moist. Conjunctivae pink. NECK: Supple. LUNGS: Clear. HEART: Reveals normal first and second heart sounds. Soft systolic murmur along the left sternal border. ABDOMEN: Soft. Bowel sounds present. No mass, organomegaly, tenderness, rebound, guarding, CVA tenderness or palpable abdominal aortic aneurysm. EXTREMITIES: Reveals no cyanosis, clubbing or edema. NEUROLOGIC: Awake, alert and oriented. PSYCHIATRIC: Normal as to mood and affect. SKIN: Warm and dry. No rash or cellulitis. LABORATORY AND IMAGING STUDIES: EKG demonstrates regular sinus rhythm with left axis deviation, interventricular conduction delay, poor R-wave progression, nonspecific ST wave changes. It is unchanged from a prior EKG dated 11/28/2016. The chest x-ray reveals cardiomegaly. No focal consolidation. White count normal, hemoglobin 11.8, hematocrit 35.7, platelet count normal. Chemistries unremarkable. BUN 27, creatinine 1.3, blood sugar 200, magnesium 1.3. LFTs mildly abnormal. AST otherwise unremarkable. CK 153. Three troponins are negative. BNP 311, repeat creatinine 1.5, repeat magnesium 1.5. IMPRESSION: Danica Mccartney is a 77-year-old woman admitted with neck and left-sided chest pain which she now attributes to chronic neck pain, which has resolved. EKG is unchanged. Three troponins are negative. The CK was normal. No significant arrhythmia documented while on telemetry. At this time, I would continue her current medications including Crestor, aspirin, Hygroton, metoprolol. Magnesium is being replaced. She can be out of bed and ambulate after breakfast. If there are no further symptoms, early discharge is anticipated with close outpatient followup. She has an appointment with Dr. Guadarrmaa for next week. She will report any additional symptoms to us. She follows with Dr. Cunningham and with Dr. Rodarte as well. Quintin Munoz MD KEI
== END 2017-12-31 11:18 | disposition home or self-care (01) ==
LOC: ED 08:57 → ERH 11:35 → 2RSO 12:33
PROVIDERS: ADMIT Internal Medicine Nephrology; ATTEND Internal Medicine Nephrology
DX: R07.89 Other chest pain (principal); M54.2 Cervicalgia; G89.29 Other chronic pain; I13.0 Hypertensive heart and chronic kidney disease with heart failure and stage 1 through stage 4 chronic kidney disease, or unspecified chronic kidney disease; I50.9 Heart failure, unspecified; N18.9 Chronic kidney disease, unspecified; I25.10 Atherosclerotic heart disease of native coronary artery without angina pectoris; E11.22 Type 2 diabetes mellitus with diabetic chronic kidney disease; E87.5 Hyperkalemia; E83.42 Hypomagnesemia; K21.9 Gastro-esophageal reflux disease without esophagitis; E78.5 Hyperlipidemia, unspecified; E03.9 Hypothyroidism, unspecified; Z87.891 Personal history of nicotine dependence; Z95.5 Presence of coronary angioplasty implant and graft; Z98.1 Arthrodesis status
CPT/HCPCS: 36415; 71045; 80053; 81001; 82550; 82948; 83615; 83690; 83735; 83880; 84484; 85025; 93005; 96365; 96375; 96376; 99285; G0378; J0360; J2270

== ENCOUNTER 2018-04-10 10:41 | Emergency (ER) | payer MEDICARE, BC ==
[2018-04-10 10:42] VITALS: BMI 37.8
[2018-04-10 11:02] VITALS: RESP 18; TEMP 97.8
--- NOTE | 2018-04-10 11:37 | ED PDOC ---
Arrival/HPI - General Historian: Patient - History of Present Illness Narrative History of Present Illness (Text): 04/10/18 11:50 78F w/ a PMH of CAD s/p stent, CKD not on HD, DM, GERD presenting w/ 1 day of chest pain/ chest discomfort. Patient reported discomfort onset last night located retrosternal/ left side of chest described sensation as a chest heaviness w/o any new or worsening dyspnea. Patient denies any radiation into her L arm/ neck/jaw. Patient reported some symptom relief w/ eating. Prior to arrival patient was given baby aspirin and nitro which yielded in some symptom relief. Patient does report some new onset LE edema. At time of evaluation patient reports her chest discomfort has improved no complaints of abd pain, n/v/d/c, urinary discomfort, sob/cox, Time/Duration: Prior to Arrival, 24 hours <Haider Jordan - Last Filed: 04/10/18 16:39> <Tristian Mortensen DO - Last Filed: 04/10/18 21:14> - General Chief Complaint: Chest Pain Time Seen by Provider: 04/10/18 11:37 Past Medical History - Provider Review Nursing Documentation Reviewed: Yes - Infectious Disease Hx of Infectious Diseases: None - Reproductive Menopause: Yes - Cardiac Hx Cardiac Disorders: Yes (mi) Hx Hypertension: Yes - Pulmonary Hx Respiratory Disorders: No - Neurological Hx Paralysis: No - Endocrine/Metabolic Hx Diabetes Mellitus Type 2: Yes Hx Hypothyroidism: Yes - Hematological/Oncological Hx Blood Transfusions: No Hx Blood Transfusion Reaction: No - Musculoskeletal/Rheumatological Hx Arthritis: Yes - Gastrointestinal Hx Gastrointestinal Disorders: Yes (colitis) Hx Gastroesophageal Reflux: Yes - Psychiatric Hx Emotional Abuse: No Hx Physical Abuse: No Hx Substance Use: No - Past Surgical History Past Surgical History: No Previous - Surgical History Hx Cardiac Catheterization: Yes Hx Coronary Stent: Yes (x1 5 yrs ago) Other/Comment: r adrenal gland removed, partial thyroidectomy, spinal fusion, toenail sx, egd x 2 colonoscopy x2 last 2014 - Anesthesia Hx Anesthesia: Yes Hx Anesthesia Reactions: No Hx Malignant Hyperthermia: No - Suicidal Assessment Feels Threatened In Home Enviroment: No <Haider Jordan - Last Filed: 04/10/18 16:39> Family/Social History - Physician Review Nursing Documentation Reviewed: Yes Family/Social History: Unknown Family HX Smoking Status: Former Smoker Hx Alcohol Use: No Hx Substance Use: No Hx Substance Use Treatment: No <Haider Jordan - Last Filed: 04/10/18 16:39> Allergies/Home Meds <Haider Jordan - Last Filed: 04/10/18 16:39> <Tristian Mortensen DO - Last Filed: 04/10/18 21:14> Allergies/Adverse Reactions: Allergies doxycycline Allergy (Intermediate, Verified 04/10/18 20:37) ITCHING indomethacin Allergy (Intermediate, Verified 04/10/18 20:37) NAUSEA Home Medications: Home Meds Medication Instructions Recorded Confirmed Cholecalciferol [Vitamin D 1000 IU] 1,000 iu PO DAILY 10/21/14 12/30/17 Dexlansoprazole [Dexilant] 60 mg PO QAM 10/21/14 12/30/17 Levothyroxine Sodium [Levoxyl] 0.075 mg PO DAILY 10/21/14 12/30/17 Magnesium Oxide [Magnesium] 1,500 mg PO DAILY 10/21/14 12/30/17 Mesalamine [Lialda] 1.2 gm PO Q12 02/11/15 12/30/17 Allopurinol [Zyloprim] 300 mg PO DAILY 06/28/15 12/30/17 Aspirin [Ecotrin] 81 mg PO DAILY 06/28/15 12/30/17 Chlorthalidone [Hygroton] 1.25 mg PO MWF 06/28/15 12/30/17 Insulin Human (NPH)/Regular 45 units SC ACB 06/28/15 12/30/17 [Novolin 70/30 (70/30 units/ml) 10 ml] Telmisartan [Micardis] 80 mg PO DAILY 06/28/15 12/30/17 Metoprolol [Lopressor] 50 mg PO BID 11/28/16 12/30/17 Acetaminophen/Diphenhydramine 1 tab PO HS 12/30/17 12/30/17 [Tylenol Pm Ex-Strength Caplet] Insulin NPH Hum/Reg Insulin Hm 50 units SC ACD 12/30/17 12/30/17 [Humulin 70-30 Vial] Patiromer Calcium Sorbitex 1 packet PO DAILY 12/30/17 12/30/17 [Veltassa] Rosuvastatin Calcium [Crestor] 5 mg PO DIN 12/30/17 12/30/17 Review of Systems - Physician Review All systems were reviewed & negative as marked: Yes - Review of Systems Constitutional: Normal Eyes: Normal ENT: Normal Respiratory: SOB Cardiovascular: Chest Pain, Palpitations, Edema Gastrointestinal: Normal. absent: Abdominal Pain, Constipation, Diarrhea, Nausea, Vomiting Genitourinary Female: Normal Musculoskeletal: Normal Skin: Normal Neurological: Normal Endocrine: Normal Hemo/Lymphatic: Normal Psychiatric: Normal <Haider Jordan - Last Filed: 04/10/18 16:39> Physical Exam Vital Signs Temp Pulse Resp BP Pulse Ox 04/10/18 11:07 18 04/10/18 10:58 97.8 F 64 18 155/87 H 100 Temperature: Afebrile Blood Pressure: Hypertensive Pulse: Regular Respiratory Rate: Normal Appearance: Positive for: Well-Appearing, Non-Toxic, Comfortable Pain Distress: None Mental Status: Positive for: Alert and Oriented X 3 - Systems Exam Head: Present: Atraumatic, Normocephalic Pupils: Present: PERRL Extroacular Muscles: Present: EOMI Conjunctiva: Present: Normal Mouth: Present: Moist Mucous Membranes Neck: Present: Normal Range of Motion Respiratory/Chest: Present: Clear to Auscultation, Good Air Exchange. No: Respiratory Distress, Accessory Muscle Use Cardiovascular: Present: Regular Rate and Rhythm, Normal S1, S2, Other (heart sounds difficult to auscultate ). No: Murmurs Abdomen: No: Tenderness, Distention, Peritoneal Signs Back: Present: Normal Inspection Upper Extremity: Present: Normal Inspection. No: Cyanosis, Edema Lower Extremity: Present: Edema (2+ Pitting bilaterally ) Neurological: Present: GCS=15, CN II-XII Intact, Speech Normal Skin: Present: Warm, Dry, Normal Color. 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 Rascon has evaluated patient at bedside in ED; Requests for second set of troponin within 6-8 hours 04/10/18 16:03 1st and 2nd troponin both within normal limit Will discharge patient home at this time w/ appropriate followup - RAD Interpretation Radiology Orders: 04/10/18 11:10 CHEST PORTABLE [RAD] Stat - EKG Interpretation EKG Interpretation (Text): 04/10/18 12:05 EKG is NSR HR 66, WV 232, R axis deviation; T wave inversions noted in III + AVF; no ST wave elevation/depressions noted. <Haider Jordan - Last Filed: 04/10/18 16:39> ED Course and Treatment: 04/10/18 13:06 78 year old female presents to the ED for evaluation of chest discomfort. In agreement with resident note which contains more details about the patient. Patient seen and evaluated with resident. Came up with plan and treatment together. - Lab Interpretations Lab Results: Troponin I < 0.01 ng/mL 04/10/18 11:20 Total Bilirubin 0.5 mg/dL (0.2-1.3) 04/10/18 11:20 AST 45 U/L (14-36) H 04/10/18 11:20 ALT 39 U/L (7-56) 04/10/18 11:20 Alkaline Phosphatase 84 U/L (38-126) 04/10/18 11:20 Total Protein 8.6 g/dL (5.8-8.3) H 04/10/18 11:20 Albumin 4.6 g/dL (3.0-4.8) 04/10/18 11:20 Globulin 4.0 gm/dL 04/10/18 11:20 Albumin/Globulin Ratio 1.2 (1.1-1.8) 04/10/18 11:20 - RAD Interpretation Radiology Orders: 04/10/18 11:10 CHEST PORTABLE [RAD] Stat <Tristian Mortensen DO - Last Filed: 04/10/18 21:14> - PA / SAFETY PROFESSIONAL / Resident Statement SHAR has reviewed & agrees with the documentation as recorded. MD/ has examined the patient and agrees with the treatment plan. - Scribe Statement The provider has reviewed the documentation as recorded by the Sepidehibe Dov Fernandez. All medical record entries made by the Scribe were at my direction and personally dictated by me. I have reviewed the chart and agree that the record accurately reflects my personal performance of the history, physical exam, medical decision making, and the department course for this patient. I have also personally directed, reviewed, and agree with the discharge instructions and disposition. <Tristian Mortensen DO - Last Filed: 04/10/18 21:14> Disposition/Present on Arrival - Present on Arrival Any Indicators Present on Arrival: No History of DVT/PE: No History of Uncontrolled Diabetes: No Urinary Catheter: No History of Decub. Ulcer: No History Surgical Site Infection Following: None - Disposition Have Diagnosis and Disposition been Completed?: Yes Disposition Time: 16:39 Patient Plan: Discharge <Haider Jordan - Last Filed: 04/10/18 16:39> - Disposition Disposition Time: 16:00 <Tristian Mortensen DO - Last Filed: 04/10/18 21:14> - Disposition Diagnosis: Chest pain Disposition: HOME/ ROUTINE Condition: GOOD Discharge Instructions (ExitCare): Chest Pain (ED) Additional Instructions: MCKINLEY LOPEZ, thank you for letting us take care of you today. The emergency medical care you received today was directed at your acute symptoms. If you were prescribed any medication, please fill it and take as directed. It may take several days for your symptoms to resolve. Return to the Emergency Department if your symptoms worsen, do not improve, or if you have any other problems. Please contact your doctor or call one of the physicians/clinics you have been referred to that are listed on the Patient Visit Information form that is included in your discharge packet. Bring any paperwork you were given at discharge with you along with any medications you are taking to your follow up visit. Our treatment cannot replace ongoing medical care by a primary care provider outside of the emergency department. Thank you for allowing the [facility] team to be part of your care today. Follow up with your primary care doctor and your colorer hides and skins in 2-3 days for re-evaluation and further management. Referrals: Cora Rodarte MD [Primary Care Provider] - Follow up with primary Hefferan,Vince, MD [Staff Provider] - Follow up with primary Forms: [employer] (Armenian)
[2018-04-10 11:38] LABS: BASO # 0.01 K/mm3 (0.0-2.0); BASO % 0.1 % (0.0-3.0); EOS % 0.4 % (1.5-5.0); HEMOGLOBIN 12.9 g/dL (12.0-16.0); LYMPH # 1.8 (1.2-3.4); LYMPH % 25.1 % (22.0-35.0); MEAN CELL VOLUME 92.4 fl (80.0-105.0); MEAN CORPUSCULAR HEMOGLOBIN 30.6 pg (25.0-35.0); MEAN CORPUSCULAR HGB CONC 33.2 g/dl (31.0-37.0); MONO # 0.6 (0.1-0.6); MONO % 7.9 % (1.0-6.0); RBC 4.21 10^6/uL (3.5-6.1); RED CELL DISTRIBUTION WIDTH 14.3 % (11.5-14.5); WHITE BLOOD COUNT 7.3 10^3/uL (4.5-11.0)
[2018-04-10 11:46] LABS: ALB/GLOB RATIO 1.2 (1.1-1.8); ALBUMIN 4.6 g/dL (3.0-4.8); ALT/SGPT 39 U/L (7-56); AST/SGOT 45 U/L (14-36); BLOOD UREA NITROGEN 37 mg/dL (7-21); CALCIUM 10.5 mg/dL (8.4-10.5); GFR NON-AFRICAN AMERICAN 27
[2018-04-10 11:58] LABS: TROPONIN I < 0.01 ng/mL
--- NOTE | 2018-04-10 13:15 | RAD ---
Date of service: 04/10/2018 HISTORY: chest pain COMPARISON: 12/30/2017 FINDINGS: LUNGS: No active pulmonary disease. PLEURA: No significant pleural effusion identified, no pneumothorax apparent. CARDIOVASCULAR: No aortic atherosclerotic calcification present. Normal cardiac size. No pulmonary vascular congestion. OSSEOUS STRUCTURES: No significant abnormalities. VISUALIZED UPPER ABDOMEN: Normal. OTHER FINDINGS: None. IMPRESSION: No active disease.
[2018-04-10 16:01] LABS: TROPONIN I < 0.01 ng/mL
[2018-04-10 16:14] VITALS: BP 158/78; PULSE 87; O2SAT 97
--- NOTE | 2018-04-10 23:05 | CARD ---
APPROVED REPORT Date of service: 04/10/2018 EKG Measurement Heart [id number] VT [id number] [id number] <Conclusion> Sinus rhythm with 1st degree AV block Rightward axis Septal infarct, age undetermined NDSTT abnormalities CCR Abnormal ECG
--- NOTE | 2018-04-11 22:55 | CON ---
DATE: 04/10/2018 REQUESTING PHYSICIAN: Dr. Mortensen REASON FOR CONSULTATION: Chest pain. HISTORY: This is an 78-year-old woman, well-known to me with history of coronary artery disease, status post prior PCI, as well as a history of hypertension, diabetes, and chronic renal insufficiency, who was seen by Dr. Cunningham earlier today and was complaining of retrosternal chest discomfort. She was ultimately sent to the emergency room for evaluation. She states that her pain is very different than her prior anginal pattern and improved after eating last evening; however, she has had worsening symptoms this morning and presented for evaluation. She does have a history of gastroesophageal reflux disease and is followed by Dr. Parry. PAST HISTORY: Notable for the problems mentioned above. She has had a history of colitis in the past and she has undergone a partial thyroidectomy, spinal fusion surgery, and right adrenalectomy. MEDICATIONS AT HOME: Include Crestor, insulin, metoprolol, Micardis, chlorthalidone, aspirin, allopurinol, Lialda, levothyroxine, Dexilant. ALLERGIES: SHE HAS HAD A REACTION TO DOXYCYCLINE AND INDOCIN IN THE PAST. SOCIAL HISTORY: She is a former smoker. She denies alcohol use. She is fairly inactive. FAMILY HISTORY: Both parents from age-related illness. REVIEW OF SYSTEMS: A 10-point review of systems notable mainly for problems mentioned above. PHYSICAL EXAMINATION: GENERAL: She is an overweight elderly woman. VITAL SIGNS: Her blood pressure is 156/86 with a pulse of 64 and sinus, respirations are 14. She is afebrile. HEENT: Normocephalic, atraumatic. NECK: Supple. No JVD noted. CHEST: Few scattered rhonchi heard. HEART: PMI displaced laterally with a systolic murmur in the left sternal border. ABDOMEN: Soft, nontender, normoactive bowel sounds. EXTREMITIES: No edema. SKIN: Warm and dry. PSYCHIATRIC: Normal mood and affect. NEUROLOGIC: Alert and oriented x3. No gross motor or sensory deficits appreciable. DIAGNOSTIC DATA: Potassium 5, BUN and creatinine of 37 and 1.8. Initial troponin is none detected. White count 7.3, hemoglobin and hematocrit of 12.9 and 38.9 with platelet count of 208,000. Electrocardiogram reveals sinus rhythm with nonspecific ST-T abnormalities. Chest x-ray reveals normal cardiac silhouette with clear lung lopez. IMPRESSION: 1. Chest discomfort which by description sounds more consistent with reflux symptoms. A stress test performed last year showed no evidence of ischemia with an ejection fraction of 57%. 2. Rest of problems as noted. RECOMMENDATIONS: Assuming she has no further discomfort and followup cardiac enzymes are negative, discharge home with outpatient followup will be advised. Followup with Dr. Parry regarding her reflux symptoms is recommended as well. Continued outpatient followup will be arranged as well. Continued risk factor control is advised. If she has any worsening symptoms, she was encouraged to return for reevaluation. Vince Guadarrama MD MTDD
== END 2018-04-10 16:15 | disposition home or self-care (01) ==
LOC: ED 10:41
DX: R07.9 Chest pain, unspecified (principal); I12.9 Hypertensive chronic kidney disease with stage 1 through stage 4 chronic kidney disease, or unspecified chronic kidney disease; I25.10 Atherosclerotic heart disease of native coronary artery without angina pectoris; I25.2 Old myocardial infarction; E11.22 Type 2 diabetes mellitus with diabetic chronic kidney disease; N18.9 Chronic kidney disease, unspecified; K21.9 Gastro-esophageal reflux disease without esophagitis; Z95.5 Presence of coronary angioplasty implant and graft; Z87.891 Personal history of nicotine dependence

== ENCOUNTER 2018-04-10 19:59 | Inpatient (IN) | payer MEDICARE, BC ==
--- NOTE | 2018-04-10 21:09 | ED PDOC ---
Arrival/HPI - General Historian: Patient - History of Present Illness Narrative History of Present Illness (Text): 04/10/18 20:59 78F w/ a PMH of CAD s/p stent, CKD not on HD, DM, GERD presenting w/ 1 day of chest pain/ chest discomfort. Patient was seen earlier this morning during w hich time she was complaining of a chest heaviness w/o dyspnea or radiation into her L arm/ neck. ACS workup revealed trop negative x2 w/o ischemic changes on EKG. She presents again tonight w/ similar complaints of chest heaviness however reports increased severity w/ radiation into her neck/ back. Stated that she was able to go home and tolerate diet, she took a nap at home after which time she awoke with same symptoms and anxiety like symptoms. At time of evaluation patient is complaining of some nausea no vomiting; reported she took nitro SL at home which did not resolve her symptoms this time around. Time/Duration: Prior to Arrival, 1-3 hours Symptom Onset: Gradual Symptom Course: Unchanged Quality: Pressure <Haider Jordan - Last Filed: 04/10/18 21:23> <Tristian Mortensen DO - Last Filed: 04/10/18 21:48> - General Chief Complaint: Chest Pain Time Seen by Provider: 04/10/18 20:53 Past Medical History - Provider Review Nursing Documentation Reviewed: Yes - Infectious Disease Hx of Infectious Diseases: None - Cardiac Hx Cardiac Disorders: Yes (mi) Hx Hypertension: Yes - Pulmonary Hx Respiratory Disorders: No - Neurological Hx Paralysis: No - Endocrine/Metabolic Hx Diabetes Mellitus Type 2: Yes Hx Hypothyroidism: Yes - Hematological/Oncological Hx Blood Transfusions: No Hx Blood Transfusion Reaction: No - Musculoskeletal/Rheumatological Hx Arthritis: Yes - Gastrointestinal Hx Gastrointestinal Disorders: Yes (colitis) Hx Gastroesophageal Reflux: Yes - Psychiatric Hx Emotional Abuse: No Hx Physical Abuse: No Hx Substance Use: No - Past Surgical History Past Surgical History: No Previous - Surgical History Hx Cardiac Catheterization: Yes Hx Coronary Stent: Yes (x1 5 yrs ago) Other/Comment: r adrenal gland removed, partial thyroidectomy, spinal fusion, toenail sx, egd x 2 colonoscopy x2 last 2015 - Anesthesia Hx Anesthesia: Yes Hx Anesthesia Reactions: No Hx Malignant Hyperthermia: No - Suicidal Assessment Feels Threatened In Home Enviroment: No <Haider Jordan - Last Filed: 04/10/18 21:23> Family/Social History - Physician Review Nursing Documentation Reviewed: Yes Family/Social History: Unknown Family HX Smoking Status: Former Smoker Hx Alcohol Use: No Hx Substance Use: No Hx Substance Use Treatment: No <Haider Jordan - Last Filed: 04/10/18 21:23> Allergies/Home Meds <Haider Jordan - Last Filed: 04/10/18 21:23> <Tristian Mortensen DO - Last Filed: 04/10/18 21:48> Allergies/Adverse Reactions: Allergies doxycycline Allergy (Intermediate, Verified 04/10/18 20:37) ITCHING indomethacin Allergy (Intermediate, Verified 04/10/18 20:37) NAUSEA Home Medications: Home Meds Medication Instructions Recorded Confirmed Cholecalciferol [Vitamin D 1000 IU] 1,000 iu PO DAILY 10/21/14 12/30/17 Dexlansoprazole [Dexilant] 60 mg PO QAM 10/21/14 12/30/17 Levothyroxine Sodium [Levoxyl] 0.075 mg PO DAILY 10/21/14 12/30/17 Magnesium Oxide [Magnesium] 1,500 mg PO DAILY 10/21/14 12/30/17 Mesalamine [Lialda] 1.2 gm PO Q12 02/11/15 12/30/17 Allopurinol [Zyloprim] 300 mg PO DAILY 06/28/15 12/30/17 Aspirin [Ecotrin] 81 mg PO DAILY 06/28/15 12/30/17 Chlorthalidone [Hygroton] 1.25 mg PO MWF 06/28/15 12/30/17 Insulin Human (NPH)/Regular 45 units SC ACB 06/28/15 12/30/17 [Novolin 70/30 (70/30 units/ml) 10 ml] Telmisartan [Micardis] 80 mg PO DAILY 06/28/15 12/30/17 Metoprolol [Lopressor] 50 mg PO BID 11/28/16 12/30/17 Acetaminophen/Diphenhydramine 1 tab PO HS 12/30/17 12/30/17 [Tylenol Pm Ex-Strength Caplet] Insulin NPH Hum/Reg Insulin Hm 50 units SC ACD 12/30/17 12/30/17 [Humulin 70-30 Vial] Patiromer Calcium Sorbitex 1 packet PO DAILY 12/30/17 12/30/17 [Veltassa] Rosuvastatin Calcium [Crestor] 5 mg PO DIN 12/30/17 12/30/17 Review of Systems - Physician Review All systems were reviewed & negative as marked: Yes - Review of Systems Constitutional: Normal Eyes: Normal ENT: Normal Respiratory: absent: SOB Cardiovascular: Chest Pain Gastrointestinal: Nausea. absent: Abdominal Pain Genitourinary Female: Normal Musculoskeletal: Normal Skin: Normal Neurological: Normal Endocrine: Normal Hemo/Lymphatic: Normal Psychiatric: Normal <Haider Jordan - Last Filed: 04/10/18 21:23> Physical Exam Vital Signs Pulse Resp BP Pulse Ox 04/10/18 20:36 64 18 149/69 98 Temperature: Afebrile Blood Pressure: Normal Pulse: Regular Respiratory Rate: Normal Appearance: Positive for: Well-Appearing, Non-Toxic, Comfortable Pain Distress: None Mental Status: Positive for: Alert and Oriented X 3 - Systems Exam Head: Present: Atraumatic, Normocephalic Pupils: Present: PERRL Extroacular Muscles: Present: EOMI Conjunctiva: Present: Normal Mouth: Present: Moist Mucous Membranes Neck: Present: Normal Range of Motion Respiratory/Chest: Present: Clear to Auscultation, Good Air Exchange. No: Respiratory Distress, Accessory Muscle Use Cardiovascular: Present: Regular Rate and Rhythm, Normal S1, S2. No: Murmurs Abdomen: No: Tenderness, Distention, Peritoneal Signs Back: Present: Normal Inspection Upper Extremity: Present: Normal Inspection. No: Cyanosis, Edema Lower Extremity: Present: Edema (2+ Pitting BL) Neurological: Present: GCS=15, CN II-XII Intact, Speech Normal Skin: Present: Warm, Dry, Normal Color. No: Rashes Psychiatric: Present: Alert, Oriented x 3, Normal Insight, Normal Concentration <Haider Jordan - Last Filed: 04/10/18 21:23> Vital Signs Pulse Resp BP Pulse Ox 04/10/18 20:36 64 18 149/69 98 <Tristian Mortensen DO - Last Filed: 04/10/18 21:48> Medical Decision Making ED Course and Treatment: 04/10/18 21:12 Impression: 78F w/ PMH CAD s/p stent >1 year ago presenting w/ complaints of chest discomfort Plan: R/o ACS Cardiac ISO CBC/ CMP MAG/Phos CXR EKG UA Zofran Protonix Progress Note: Will admit patient to obs for ACS r/o - RAD Interpretation Radiology Orders: 04/10/18 20:47 CHEST PORTABLE [RAD] Stat <Haider Jordan - Last Filed: 04/10/18 21:23> - Lab Interpretations Lab Results: Troponin I 0.01 ng/mL 04/10/18 20:57 Total Bilirubin 0.5 mg/dL (0.2-1.3) 04/10/18 20:57 AST 49 U/L (14-36) H 04/10/18 20:57 ALT 36 U/L (7-56) 04/10/18 20:57 Alkaline Phosphatase 78 U/L (38-126) 04/10/18 20:57 Total Protein 8.1 g/dL (5.8-8.3) 04/10/18 20:57 Albumin 4.3 g/dL (3.0-4.8) 04/10/18 20:57 Globulin 3.8 gm/dL 04/10/18 20:57 Albumin/Globulin Ratio 1.1 (1.1-1.8) 04/10/18 20:57 - RAD Interpretation Radiology Orders: 04/10/18 20:47 CHEST PORTABLE [RAD] Stat - Medication Orders Current Medication Orders: Discontinued Medications Ondansetron HCl (Zofran Inj) 4 mg IVP STAT STA Stop: 04/10/18 21:18 Last Admin: 04/10/18 21:31 Dose: 4 mg IVP Administration Document 04/10/18 21:31 SS (Rec: 04/10/18 21:31 SS [id number]) Charges for Administration # of IVP Administrations 1 Pantoprazole Sodium (Protonix Inj) 40 mg IVP STAT STA Stop: 04/10/18 21:18 Last Admin: 04/10/18 21:31 Dose: 40 mg IVP Administration Document 04/10/18 21:31 SS (Rec: 04/10/18 21:31 SS [id number]) Charges for Administration # of IVP Administrations 1 <Tristian Mortensen DO - Last Filed: 04/10/18 21:48> - PA / SR. DIRECTOR / Resident Statement SHAR has reviewed & agrees with the documentation as recorded. MD/DO has examined the patient and agrees with the treatment plan. - Scribe Statement The provider has reviewed the documentation as recorded by the Scribe <Tristian Mortensen DO - Last Filed: 04/10/18 21:48> Disposition/Present on Arrival - Present on Arrival Any Indicators Present on Arrival: No History of DVT/PE: No History of Uncontrolled Diabetes: No Urinary Catheter: No History of Decub. Ulcer: No History Surgical Site Infection Following: None - Disposition Have Diagnosis and Disposition been Completed?: Yes Disposition Time: 21:19 Patient Plan: Admission <Haider Jordan - Last Filed: 04/10/18 21:23> <Tristian Mortensen DO - Last Filed: 04/10/18 21:48> - Disposition Diagnosis: Chest pain Disposition: HOSPITALIZED Condition: STABLE Referrals: Cora Rodarte MD [Primary Care Provider] - Follow up with primary Forms: [employer] (Japanese)
[2018-04-10 21:11] LABS: BASO # 0.01 K/mm3 (0.0-2.0); BASO % 0.1 % (0.0-3.0); EOS % 0.6 % (1.5-5.0); HEMOGLOBIN 12.5 g/dL (12.0-16.0); LYMPH # 1.7 (1.2-3.4); LYMPH % 24.5 % (22.0-35.0); MEAN CELL VOLUME 93.1 fl (80.0-105.0); MEAN CORPUSCULAR HGB CONC 33.3 g/dl (31.0-37.0); MEAN PLATELET VOLUME 9.9 fl (7.0-11.0); MONO # 0.6 (0.1-0.6); MONO % 9.2 % (1.0-6.0); RBC 4.03 10^6/uL (3.5-6.1); RED CELL DISTRIBUTION WIDTH 14.4 % (11.5-14.5)
[2018-04-10 21:18] LABS: ALB/GLOB RATIO 1.1 (1.1-1.8); ALBUMIN 4.3 g/dL (3.0-4.8); CALCIUM 9.9 mg/dL (8.4-10.5)
[2018-04-10 21:27] LABS: TROPONIN I 0.01 ng/mL
[2018-04-11 00:33] LABS: URINE BILIRUBIN NEGATIVE (NEGATIVE); URINE BLOOD NEGATIVE (NEGATIVE); URINE GLUCOSE (UA) NEGATIVE (NEGATIVE); URINE LEUKOCYTE ESTERASE TRACE Leu/uL (NEGATIVE); URINE PROTEIN TRACE mg/dL (<30 mg/dL); URINE UROBILINOGEN 0.2 E.U./dL (<1 E.U./dL)
[2018-04-11 00:36] LABS: URINE APPEARANCE CLEAR (CLEAR); URINE COLOR YELLOW (YELLOW)
[2018-04-11] MEDS ORDERED: Magnesium Sulfate 2 gm/50 ml 2 GM/50 ML BAG IVPB STA (00:47)
[2018-04-11 00:53] LABS: URINE EPITHELIAL CELLS 0 - 2 /hpf (0-5); URINE RBC 0 - 2 /hpf (0-2); URINE WBC 0 - 2 /hpf (0-6)
[2018-04-11 04:01] VITALS: BMI 36.6
--- NOTE | 2018-04-11 08:17 | RAD ---
Date of service: 04/10/2018 HISTORY: chest pain COMPARISON: Portable chest 04/10/2018. FINDINGS: LUNGS: No active pulmonary disease. PLEURA: No significant pleural effusion identified, no pneumothorax apparent. CARDIOVASCULAR: No aortic atherosclerotic calcification present. Normal cardiac size. No pulmonary vascular congestion. OSSEOUS STRUCTURES: No significant abnormalities. VISUALIZED UPPER ABDOMEN: Normal. OTHER FINDINGS: None. IMPRESSION: No interval acute cardiopulmonary disease appreciated.
--- NOTE | 2018-04-11 10:39 | CP.PCM.APN ---
Subjective - Date & Time of Evaluation Date of Evaluation: 04/11/18 Time of Evaluation: 10:36 - Subjective Subjective: pt yolanda chang examined at [facility] , pt states her cp is better today , pt aware of plan for cath in am , at this time deneis cp or sob Review of Systems - Review of Systems All systems: reviewed and no additional remarkable complaints except Objective - Vital Signs/Intake and Output Vital Signs (last 24 hours): Temp Pulse Resp BP Pulse Ox 97.4 F L 64 18 125/83 97 04/11/18 06:00 04/11/18 06:00 04/11/18 06:00 04/11/18 06:00 04/11/18 06:00 Intake and Output: 04/11/18 04/11/18 06:59 18:59 Intake Total 240 Output Total 1 Balance 239 - Labs Labs: 04/10/18 20:57 04/10/18 20:57 - Constitutional Appears: No Acute Distress - Head Exam Head Exam: NORMOCEPHALIC - Eye Exam Pupil Exam: NORMAL ACCOMODATION - Neck Exam Neck Exam: Normal Inspection - Respiratory Exam Respiratory Exam: Decreased Breath Sounds, NORMAL BREATHING PATTERN - Cardiovascular Exam Cardiovascular Exam: +S1, +S2 - GI/Abdominal Exam GI & Abdominal Exam: Soft, Normal Bowel Sounds - Extremities Exam Extremities Exam: Normal Capillary Refill - Neurological Exam Neurological Exam: Alert, Awake, Oriented x3 - Skin Skin Exam: Dry, Intact Assessment and Plan - Assessment and Plan (Free Text) Plan: ITS Impressions Chest X-Ray 04/10/18 20:47 IMPRESSION: No interval acute cardiopulmonary disease appreciated. All Active Problems Chest pain (Acute) 78 yr old with pmh sig for cad with stents, ckd not on HD, DM, GERD who was admitted with CP and found to have elevated troponins now being evaluated by Abiodun with plan for cath in am. will continue to follow clinical course BPCI/TIC - BPCIA/TIC Educated pt/family on BPCIA/CIR/Med to Bed Programs: N/A Flyers given, including [facility] Beneficiary letter: N/A Pt/family verbalized understanding & agreed to program: N/A
[2018-04-11] MEDS ORDERED: Non Formulary Medication (Rosuvastatin Calcium [Crestor] 1 TAB) PO SCH (12:30)
[2018-04-11] MEDS ORDERED: TELMISARTAN PO SCH (12:30)
[2018-04-11] MEDS ORDERED: Non Formulary Medication (Fluticasone/Vilanterol 100/25 [Breo Ellipta 100-25 Mcg Inh] 1 PU IH SCH (12:30)
[2018-04-11] MEDS ORDERED: MESALAMINE 1.2 GM PO SCH (12:30)
[2018-04-11] MEDS: Levothyroxine 75 MCG TAB PO SCH (12:52)
--- NOTE | 2018-04-11 13:29 | CP.PCM.HP ---
Past Patient History - Infectious Disease Hx of Infectious Diseases: None - Past Social History Smoking Status: Former Smoker - CARDIAC Hx Cardiac Disorders: Yes (mi) Hx Hypertension: Yes - PULMONARY Hx Respiratory Disorders: No - NEUROLOGICAL Hx Paralysis: No - ENDOCRINE/METABOLIC Hx Diabetes Mellitus Type 2: Yes Hx Hypothyroidism: Yes - HEMATOLOGICAL/ONCOLOGICAL Hx Blood Transfusions: No Hx Blood Transfusion Reaction: No - MUSCULOSKELETAL/RHEUMATOLOGICAL Hx Arthritis: Yes Hx Falls: No - GASTROINTESTINAL Hx Gastrointestinal Disorders: Yes (colitis) Hx Gastroesophageal Reflux: Yes - PSYCHIATRIC Hx Emotional Abuse: No Hx Physical Abuse: No Hx Substance Use: No - SURGICAL HISTORY Hx Cardiac Catheterization: Yes Hx Coronary Stent: Yes (x1 5 yrs ago) Other/Comment: r adrenal gland removed, partial thyroidectomy, spinal fusion, toenail sx, egd x 2 colonoscopy x2 last 2014 - ANESTHESIA Hx Anesthesia: Yes Hx Anesthesia Reactions: No Hx Malignant Hyperthermia: No Meds Allergies/Adverse Reactions: Allergies Allergy/AdvReac Type Severity Reaction Status Date / Time doxycycline Allergy Intermediate ITCHING Verified 04/10/18 20:37 indomethacin Allergy Intermediate NAUSEA Verified 04/10/18 20:37 Results - Vital Signs Recent Vital Signs: Last Vital Signs Temp 97.9 F 04/11/18 12:00 Pulse 69 04/11/18 12:00 Resp 18 04/11/18 12:00 BP 149/70 04/11/18 12:00 Pulse Ox 97 04/11/18 06:00 - Labs Result Diagrams: 04/10/18 20:57 04/10/18 20:57 Labs: Laboratory Results - last 24 hr 04/10/18 04/10/18 04/10/18 20:57 20:57 23:35 WBC 7.0 RBC 4.03 Hgb 12.5 Hct 37.5 MCV 93.1 MCH 31.0 MCHC 33.3 RDW 14.4 Plt Count 191 MPV 9.9 Neut % (Auto) 65.6 Lymph % (Auto) 24.5 [place] % (Auto) 9.2 H Eos % (Auto) 0.6 L Baso % (Auto) 0.1 Lymph # (Auto) 1.7 [place] # (Auto) 0.6 Eos # (Auto) 0.0 Baso # (Auto) 0.01 Absolute Neuts (auto) 4.59 Sodium 137 Potassium 4.7 Chloride 107 Carbon Dioxide 19 L Anion Gap 16 BUN 37 H Creatinine 1.9 H Est GFR ( Amer) 31 Est GFR (Non-Af Amer) 25 Random Glucose 196 H Calcium 9.9 Magnesium 1.3 L Total Bilirubin 0.5 AST 49 H ALT 36 Alkaline Phosphatase 78 Lactate Dehydrogenase 533 Total Creatine Kinase 210 Troponin I 0.01 Total Protein 8.1 Albumin 4.3 Globulin 3.8 Albumin/Globulin Ratio 1.1 Urine Color Yellow Urine Appearance Clear Urine pH 6.0 Ur Specific [place] 1.020 Urine Protein Trace H Urine Glucose (UA) Negative Urine Ketones Negative Urine Blood Negative Urine Nitrate Negative Urine Bilirubin Negative Urine Urobilinogen 0.2 Ur Leukocyte Esterase Trace H Urine RBC 0 - 2 Urine WBC 0 - 2 Ur Epithelial Cells 0 - 2 Urine Bacteria None 04/11/18 09:20 WBC RBC Hgb Hct MCV MCH MCHC RDW Plt Count MPV Neut % (Auto) Lymph % (Auto) [place] % (Auto) Eos % (Auto) Baso % (Auto) Lymph # (Auto) [place] # (Auto) Eos # (Auto) Baso # (Auto) Absolute Neuts (auto) Sodium Potassium Chloride Carbon Dioxide Anion Gap BUN Creatinine Est GFR ( Amer) Est GFR (Non-Af Amer) Random Glucose Calcium Magnesium Total Bilirubin AST ALT Alkaline Phosphatase Lactate Dehydrogenase Total Creatine Kinase Troponin I 3.85 H* D Total Protein Albumin Globulin Albumin/Globulin Ratio Urine Color Urine Appearance Urine pH Ur Specific [place] Urine Protein Urine Glucose (UA) Urine Ketones Urine Blood Urine Nitrate Urine Bilirubin Urine Urobilinogen Ur Leukocyte Esterase Urine RBC Urine WBC Ur Epithelial Cells Urine Bacteria
[2018-04-11] MEDS ORDERED: Enoxaparin 100 mg Syringe SC SCH (13:30)
[2018-04-11] MEDS ORDERED: Heparin25000 units/250ml 1/2NS 25,000 UNITS/250 ML BAG IV SCH (13:30)
--- NOTE | 2018-04-11 13:32 | CP.PCM.HP ---
<TrevaEfrain - Last Filed: 04/11/18 13:38> History of Present Illness - History of Present Illness History of Present Illness: H&P for Dr Torrez: 78-year-old female with past medical history of coronary artery disease with stents, CKD, insulin-dependent diabetes, GERD, hypothyroidism, HTN presents with chest pain and discomfort. Patient states that her chest pain initially started yesterday morning. She came here to the emergency room and an EKG was performed along with 2 neg troponins and the patient was sent home. Patient had recurrent chest pain and came back to the emergency room. Patient states that the pain is throughout her whole chest. She also gets radiating pain to her neck and her left hand. She states the pain is 8 out of 10 in severity. She denies any diaphoresis, nausea, vomiting or shortness of breath. No other complaints. 12 point ROS performed and negative other than stated above PMH: As above SH: Partial thyroidectomy, right adrenalectomy Medications: Refer to [facility] FH: Father with Alzheimer's, mother with heart failure, brother with DE SH: Smoker of 1-1/2 packs/day for 40 years, quit 10 years ago Present on Admission - Present on Admission Any Indicators Present on Admission: No Review of Systems - Review of Systems All systems: reviewed and no additional remarkable complaints except Past Patient History - Infectious Disease Hx of Infectious Diseases: None - Past Social History Smoking Status: Former Smoker - CARDIAC Hx Cardiac Disorders: Yes (mi) Hx Hypertension: Yes - PULMONARY Hx Respiratory Disorders: No - NEUROLOGICAL Hx Paralysis: No - ENDOCRINE/METABOLIC Hx Diabetes Mellitus Type 2: Yes Hx Hypothyroidism: Yes - HEMATOLOGICAL/ONCOLOGICAL Hx Blood Transfusions: No Hx Blood Transfusion Reaction: No - MUSCULOSKELETAL/RHEUMATOLOGICAL Hx Arthritis: Yes Hx Falls: No - GASTROINTESTINAL Hx Gastrointestinal Disorders: Yes (colitis) Hx Gastroesophageal Reflux: Yes - PSYCHIATRIC Hx Emotional Abuse: No Hx Physical Abuse: No Hx Substance Use: No - SURGICAL HISTORY Hx Cardiac Catheterization: Yes Hx Coronary Stent: Yes (x1 5 yrs ago) Other/Comment: r adrenal gland removed, partial thyroidectomy, spinal fusion, toenail sx, egd x 2 colonoscopy x2 last 2014 - ANESTHESIA Hx Anesthesia: Yes Hx Anesthesia Reactions: No Hx Malignant Hyperthermia: No Meds Allergies/Adverse Reactions: Allergies Allergy/AdvReac Type Severity Reaction Status Date / Time doxycycline Allergy Intermediate ITCHING Verified 04/10/18 20:37 indomethacin Allergy Intermediate NAUSEA Verified 04/10/18 20:37 Physical Exam - Constitutional Appears: No Acute Distress - Head Exam Head Exam: ATRAUMATIC, NORMOCEPHALIC - Eye Exam Eye Exam: EOMI, PERRL - ENT Exam ENT Exam: Mucous Membranes Moist - Respiratory Exam Respiratory Exam: Clear to Auscultation Bilateral. absent: Rales, Wheezes - Cardiovascular Exam Cardiovascular Exam: REGULAR RHYTHM, +S1, +S2 - GI/Abdominal Exam GI & Abdominal Exam: Normal Bowel Sounds, Soft. absent: Distended, Tenderness - Extremities Exam Extremities exam: Negative for: calf tenderness, pedal edema - Neurological Exam Neurological exam: Alert, CN II-XII Intact, Oriented x3 - Psychiatric Exam Psychiatric exam: Normal Mood - Skin Skin Exam: Dry, Warm Results - Vital Signs Recent Vital Signs: Last Vital Signs Temp 97.9 F 04/11/18 12:00 Pulse 69 04/11/18 12:00 Resp 18 04/11/18 12:00 BP 149/70 04/11/18 12:00 Pulse Ox 97 04/11/18 06:00 - Labs Result Diagrams: 04/10/18 20:57 04/10/18 20:57 Labs: Laboratory Results - last 24 hr 04/10/18 04/10/18 04/10/18 20:57 20:57 23:35 WBC 7.0 RBC 4.03 Hgb 12.5 Hct 37.5 MCV 93.1 MCH 31.0 MCHC 33.3 RDW 14.4 Plt Count 191 MPV 9.9 Neut % (Auto) 65.6 Lymph % (Auto) 24.5 [place] % (Auto) 9.2 H Eos % (Auto) 0.6 L Baso % (Auto) 0.1 Lymph # (Auto) 1.7 [place] # (Auto) 0.6 Eos # (Auto) 0.0 Baso # (Auto) 0.01 Absolute Neuts (auto) 4.59 Sodium 137 Potassium 4.7 Chloride 107 Carbon Dioxide 19 L Anion Gap 16 BUN 37 H Creatinine 1.9 H Est GFR ( Amer) 31 Est GFR (Non-Af Amer) 25 Random Glucose 196 H Calcium 9.9 Magnesium 1.3 L Total Bilirubin 0.5 AST 49 H ALT 36 Alkaline Phosphatase 78 Lactate Dehydrogenase 533 Total Creatine Kinase 210 Troponin I 0.01 Total Protein 8.1 Albumin 4.3 Globulin 3.8 Albumin/Globulin Ratio 1.1 Urine Color Yellow Urine Appearance Clear Urine pH 6.0 Ur Specific [place] 1.020 Urine Protein Trace H Urine Glucose (UA) Negative Urine Ketones Negative Urine Blood Negative Urine Nitrate Negative Urine Bilirubin Negative Urine Urobilinogen 0.2 Ur Leukocyte Esterase Trace H Urine RBC 0 - 2 Urine WBC 0 - 2 Ur Epithelial Cells 0 - 2 Urine Bacteria None 04/11/18 09:20 WBC RBC Hgb Hct MCV MCH MCHC RDW Plt Count MPV Neut % (Auto) Lymph % (Auto) [place] % (Auto) Eos % (Auto) Baso % (Auto) Lymph # (Auto) [place] # (Auto) Eos # (Auto) Baso # (Auto) Absolute Neuts (auto) Sodium Potassium Chloride Carbon Dioxide Anion Gap BUN Creatinine Est GFR ( Amer) Est GFR (Non-Af Amer) Random Glucose Calcium Magnesium Total Bilirubin AST ALT Alkaline Phosphatase Lactate Dehydrogenase Total Creatine Kinase Troponin I 3.85 H* D Total Protein Albumin Globulin Albumin/Globulin Ratio Urine Color Urine Appearance Urine pH Ur Specific [place] Urine Protein Urine Glucose (UA) Urine Ketones Urine Blood Urine Nitrate Urine Bilirubin Urine Urobilinogen Ur Leukocyte Esterase Urine RBC Urine WBC Ur Epithelial Cells Urine Bacteria Assessment & Plan - Assessment and Plan (Free Text) Assessment: 1. Chest pain rule out ACS 2. Coronary artery disease with stent placement 3. CKD stage 4 4. Insulin-dependent diabetes type 2 5. GERD 6. Hypomagnesium 7. Hyperuricemia 8. Hypothyroidism 9. HTN Patient still complains of some chest pain. Initial troponins were negative however follow-up troponin was elevated at 3.85. EKG showed heart rate of 61, sinus rhythm with first degree AV block, left axis deviation, moderate voltage criteria for LVH. Chest x-ray was performed and was unremarkable. Cardiology was consulted awaiting recommendationspossible cardiac catheterization tomorrow . Patient was started on heparin drip as cannot start Lovenox with history of CKD. Patient was also given a loading dose of Plavix 300 mg x1, continue with aspirin and Plavix daily. Patient also is on metoprolol. For her diabetes will resume her home insulin. For her hyperuricemia will resume her home allopurinol. For her hypothyroidism we will resume her Synthroid. For her hypertension we will resume her chlorthalidone and losartan. CKD stage 4, will cont to monitor her BUN/Cr. Hypomagnesium was repleted with mag sulfate 2gm x 1. For her GERD will resume her Protonix. Heart healthy diet. NPO after midnight. Cont to monitor for any changes. Case and plan was reviewed and discussed with Dr Torrez. <Sridhar Torrez - Last Filed: 04/11/18 20:09> Results - Vital Signs Recent Vital Signs: Last Vital Signs Temp 97.3 F L 04/11/18 18:00 Pulse 71 04/11/18 18:00 Resp 18 04/11/18 18:00 BP 115/71 04/11/18 18:00 Pulse Ox 97 04/11/18 06:00 - Labs Result Diagrams: 04/11/18 14:00 04/11/18 14:00 Labs: Laboratory Results - last 24 hr 04/10/18 04/10/18 04/10/18 20:57 20:57 23:35 WBC 7.0 RBC 4.03 Hgb 12.5 Hct 37.5 MCV 93.1 MCH 31.0 MCHC 33.3 RDW 14.4 Plt Count 191 MPV 9.9 Neut % (Auto) 65.6 Lymph % (Auto) 24.5 [place] % (Auto) 9.2 H Eos % (Auto) 0.6 L Baso % (Auto) 0.1 Lymph # (Auto) 1.7 [place] # (Auto) 0.6 Eos # (Auto) 0.0 Baso # (Auto) 0.01 Absolute Neuts (auto) 4.59 APTT Sodium 137 Potassium 4.7 Chloride 107 Carbon Dioxide 19 L Anion Gap 16 BUN 37 H Creatinine 1.9 H Est GFR ( Amer) 31 Est GFR (Non-Af Amer) 25 Random Glucose 196 H Calcium 9.9 Phosphorus Magnesium 1.3 L Total Bilirubin 0.5 AST 49 H ALT 36 Alkaline Phosphatase 78 Lactate Dehydrogenase 533 Total Creatine Kinase 210 Troponin I 0.01 Total Protein 8.1 Albumin 4.3 Globulin 3.8 Albumin/Globulin Ratio 1.1 Urine Color Yellow Urine Appearance Clear Urine pH 6.0 Ur Specific [place] 1.020 Urine Protein Trace H Urine Glucose (UA) Negative Urine Ketones Negative Urine Blood Negative Urine Nitrate Negative Urine Bilirubin Negative Urine Urobilinogen 0.2 Ur Leukocyte Esterase Trace H Urine RBC 0 - 2 Urine WBC 0 - 2 Ur Epithelial Cells 0 - 2 Urine Bacteria None 04/11/18 04/11/18 04/11/18 09:20 14:00 14:00 WBC 7.2 RBC 3.99 Hgb 12.4 Hct 37.1 MCV 93.0 MCH 31.1 MCHC 33.4 RDW 14.5 Plt Count 184 MPV 10.0 Neut % (Auto) 64.1 Lymph % (Auto) 21.6 L [place] % (Auto) 13.5 H Eos % (Auto) 0.7 L Baso % (Auto) 0.1 Lymph # (Auto) 1.6 [place] # (Auto) 1.0 H Eos # (Auto) 0.1 Baso # (Auto) 0.01 Absolute Neuts (auto) 4.62 APTT Sodium 136 Potassium 5.2 H Chloride 104 Carbon Dioxide 23 Anion Gap 14 BUN 36 H Creatinine 1.9 H Est GFR ( Amer) 31 Est GFR (Non-Af Amer) 25 Random Glucose 261 H Calcium 10.2 Phosphorus 4.0 Magnesium 1.6 L Total Bilirubin 0.6 AST 68 H D ALT 40 Alkaline Phosphatase 86 Lactate Dehydrogenase Total Creatine Kinase Troponin I 3.85 H* D Total Protein 8.1 Albumin 4.3 Globulin 3.8 Albumin/Globulin Ratio 1.1 Urine Color Urine Appearance Urine pH Ur Specific [place] Urine Protein Urine Glucose (UA) Urine Ketones Urine Blood Urine Nitrate Urine Bilirubin Urine Urobilinogen Ur Leukocyte Esterase Urine RBC Urine WBC Ur Epithelial Cells Urine Bacteria 04/11/18 19:18 WBC RBC Hgb Hct MCV MCH MCHC RDW Plt Count MPV Neut % (Auto) Lymph % (Auto) [place] % (Auto) Eos % (Auto) Baso % (Auto) Lymph # (Auto) [place] # (Auto) Eos # (Auto) Baso # (Auto) Absolute Neuts (auto) APTT > 400.0 H* Sodium Potassium Chloride Carbon Dioxide Anion Gap BUN Creatinine Est GFR ( Amer) Est GFR (Non-Af Amer) Random Glucose Calcium Phosphorus Magnesium Total Bilirubin AST ALT Alkaline Phosphatase Lactate Dehydrogenase Total Creatine Kinase Troponin I Total Protein Albumin Globulin Albumin/Globulin Ratio Urine Color Urine Appearance Urine pH Ur Specific [place] Urine Protein Urine Glucose (UA) Urine Ketones Urine Blood Urine Nitrate Urine Bilirubin Urine Urobilinogen Ur Leukocyte Esterase Urine RBC Urine WBC Ur Epithelial Cells Urine Bacteria Assessment & Plan - Assessment and Plan (Free Text) Assessment: Pt seen and examined by me. I have reviewed the note of the medical auditor and I agree with it. I have discussed the assessment and plan with the resident. I have reviewed the medications and the last labs.
[2018-04-11 14:20] LABS: BASO # 0.01 K/mm3 (0.0-2.0); BASO % 0.1 % (0.0-3.0); EOS # 0.1 (0.0-0.7); EOS % 0.7 % (1.5-5.0); HEMOGLOBIN 12.4 g/dL (12.0-16.0); LYMPH # 1.6 (1.2-3.4); LYMPH % 21.6 % (22.0-35.0); MEAN CORPUSCULAR HEMOGLOBIN 31.1 pg (25.0-35.0); MEAN CORPUSCULAR HGB CONC 33.4 g/dl (31.0-37.0); MONO % 13.5 % (1.0-6.0); RBC 3.99 10^6/uL (3.5-6.1); RED CELL DISTRIBUTION WIDTH 14.5 % (11.5-14.5); WHITE BLOOD COUNT 7.2 10^3/uL (4.5-11.0)
[2018-04-11 15:12] LABS: ALB/GLOB RATIO 1.1 (1.1-1.8); ALBUMIN 4.3 g/dL (3.0-4.8); CALCIUM 10.2 mg/dL (8.4-10.5)
[2018-04-11] MEDS ORDERED: Magnesium Sulfate 1 gm in D5W 1 GM/100 ML BAG IVPB ONE (15:53)
--- NOTE | 2018-04-11 17:21 | CARD ---
APPROVED REPORT Date of service: 04/10/2018 EKG Measurement Heart [id number] <Conclusion> Sinus rhythm with 1st degree AV block Left axis deviation Moderate voltage criteria for LVH, may be normal variant Abnormal ECG
[2018-04-11] MEDS: Insulin Lispro (humaLOG) MEDIUM Coverage SC SCH ×2 (17:32→22:32)
[2018-04-11] MEDS: Insulin Lispro (humaLOG) MIX 75/25(10 ml) SC SCH (17:40)
--- NOTE | 2018-04-11 21:24 | HP ---
DATE OF EXAM: 04/11/2018 HISTORY OF PRESENT ILLNESS: The patient was seen and examined. I do agree with the note of the medical record librarian. I was involved in the plan of care. The patient has initially come to the hospital because of chest pain. She was in the hospital earlier yesterday and was discharged. She has history of a coronary artery disease. The patient had an EKG that did not show signs of ischemia. A troponin that was done early this morning was positive and she is scheduled for a cardiac cath tomorrow. She has been started on heparin. She is not going to be on Lovenox because of her CKD stage IV. She is at risk of having contrast nephropathy given that she has CKD stage IV. We will now need to minimize the contrast material that is given and also hydrate her. She will continue on her Protonix. The patient is on allopurinol for her hyperuricemia. She is being followed by Dr. Guadarrama. She is on Losartan for her CKD. She is also receiving chlorthalidone. Chlorthalidone has been placed on hold. She will continue her insulin. She is on Lipitor for her dyslipidemia. She is on metoprolol and also needs Plavix. Sridhar Torrez MD
--- NOTE | 2018-04-11 23:13 | CON ---
DATE OF CONSULTATION: 04/11/2018 REQUESTING PHYSICIAN: Sridhar Torrez MD REASON FOR CONSULTATION: Chest pain. HISTORY: This is an 78-year-old woman, well known to me with a history of coronary artery disease status post prior PCI of her LAD as well as multiple cardiac risk factors, who was admitted through the emergency room last evening. She had been seen earlier in the day with what appeared to be fairly atypical chest discomfort. However, later at home she had severe retrosternal pressure radiating to both shoulders and her jaw with associated weakness and diaphoresis. She was brought back to the emergency room as her EKG showed nonspecific changes. Initial troponin was negative; however, repeat is 3.7. She has been admitted for management. PAST HISTORY: Notable for the problems as mentioned above. She does have chronic renal insufficiency, diabetes, hypertension, hypothyroidism, gastroesophageal reflux disease, partial thyroidectomy and a right adrenalectomy in the past. FAMILY HISTORY: Both parents from age-related illness, one brother did have myocardial fraction. SOCIAL HISTORY: She is a former smoker. She denies alcohol use. CURRENT MEDICATIONS: Cozaar 100 mg daily, Ecotrin, Breo Ellipta, insulin, chlorthalidone Lipitor, metoprolol 50 mg b.i.d., mesalamine, Synthroid, Veltassa, and allopurinol. ALLERGIES: SHE HAS HAD REACTIONS TO DOXYCYCLINE AND INDOCIN IN THE PAST. REVIEW OF SYSTEMS: A 10-point review of systems is otherwise unremarkable. PHYSICAL EXAMINATION: GENERAL: She is an overweight elderly woman. VITAL SIGNS: Blood pressure is 126/80 with a pulse of 80 and sinus. Respirations 16. She is afebrile. HEENT: Normocephalic, atraumatic. NECK: Supple. No JVD noted. CHEST: Few scattered rhonchi heard. HEART: PMI normal position. No pathological murmurs or gallops noted. ABDOMEN: Soft, nontender, with normoactive bowel sounds. EXTREMITIES: No edema. SKIN: Warm and dry. PSYCHIATRIC: Normal mood and affect. NEUROLOGIC: Alert and oriented x3. No gross motor or sensory deficits notable. DIAGNOSTIC DATA: Initial troponin 0.01, repeat is 3.85. Potassium 5.2, BUN and creatinine 36 and 1.9. White count 7.2, hemoglobin and hematocrit 12.4 and 37.1 with a platelet count 184,000. Chest x-ray reveals normal cardiac silhouette with clear lung lopez. Electrocardiogram reveals sinus rhythm with first-degree AV block, left axis deviation and voltage criteria for LVH. IMPRESSION: 1. Apparent acute coronary syndrome, known coronary artery disease status post prior PCI of her LAD. 2. Hypertension. 3. Diabetes. 4. Chronic renal insufficiency. 5. Rest of the problems as noted. RECOMMENDATIONS: Followup enzymes will be monitored. IV hydration will be initiated this evening. Aspirin and Plavix therapy will be added to her regimen. IV heparinization will be initiated as well. Beta-prisca and statin therapy will continue. Cardiac catheterization to define her anatomy and plan appropriate treatment options will be planned for the morning. If she has any unstable symptoms, this will be performed emergently. Further recommendations will be made based upon those results. Thank you for this consultation and I will be happy to follow along as needed. Vince Guadarrama MD
[2018-04-12] MEDS: Sodium Chloride 0.9% 1,000 ML IV SCH ×2 (01:29→12:00)
[2018-04-12 04:33] LABS: BASO # 0.01 K/mm3 (0.0-2.0); BASO % 0.2 % (0.0-3.0); EOS % 0.7 % (1.5-5.0); HEMOGLOBIN 11.5 g/dL (12.0-16.0); LYMPH # 1.6 (1.2-3.4); LYMPH % 28.7 % (22.0-35.0); MEAN CELL VOLUME 93.8 fl (80.0-105.0); MEAN CORPUSCULAR HEMOGLOBIN 30.9 pg (25.0-35.0); MEAN PLATELET VOLUME 9.9 fl (7.0-11.0); MONO # 0.6 (0.1-0.6); MONO % 11.3 % (1.0-6.0); RBC 3.72 10^6/uL (3.5-6.1); RED CELL DISTRIBUTION WIDTH 14.5 % (11.5-14.5); WHITE BLOOD COUNT 5.4 10^3/uL (4.5-11.0)
[2018-04-12 05:02] LABS: ALB/GLOB RATIO 1.1 (1.1-1.8); ALBUMIN 3.9 g/dL (3.0-4.8); CALCIUM 9.5 mg/dL (8.4-10.5)
[2018-04-12] MEDS ORDERED: Insulin Regular 1 UNITS/0.01 ML ML SC STA (05:13)
[2018-04-12] MEDS ORDERED: Lidocaine PF 2% (5 ml) Inj (For Cardiac Arrhy) ONE (07:22)
[2018-04-12] MEDS ORDERED: Phenylephrine 10 mg/ml Inj ONE (07:22)
[2018-04-12] MEDS ORDERED: Iodixanol 320 MG/ML 200 ML BOTTLE IV ONE (07:23)
[2018-04-12] MEDS ORDERED: Iohexol 350mgl/ml 50 ML ONE (07:23)
[2018-04-12] MEDS ORDERED: Iodixanol 320 MG/ML 100 ML BOTTLE IV ONE (07:23)
[2018-04-12] MEDS ORDERED: Nitroglycerin 50mg in D5W 50 MG/250 ML BOTTLE IV ONE (07:23)
[2018-04-12] MEDS ORDERED: Heparin 2,000 ML IV ONE (07:23)
[2018-04-12] MEDS: Insulin Lispro (humaLOG) MEDIUM Coverage SC SCH ×4 (07:30→22:44)
[2018-04-12] MEDS: Midazolam 2 MG/2 ML VIAL ONE ×2 (07:33→10:25)
[2018-04-12] MEDS: Adenosine 90 mg/30mL IV ONE ×2 (08:00→10:22)
[2018-04-12] MEDS ORDERED: Cholecalciferol 1,000 INTLU TAB PO SCH (10:00)
[2018-04-12] MEDS: Non Formulary Medication (Fluticasone/Vilanterol 100/25 [Breo Ellipta 100-25 Mcg Inh] 1 PU IH SCH (10:16)
[2018-04-12] MEDS: MESALAMINE 1.2 GM PO SCH (10:24)
[2018-04-12] MEDS: Insulin Lispro (humaLOG) MIX 75/25(10 ml) SC SCH ×2 (10:30→18:04)
[2018-04-12] MEDS: Cholecalciferol 1,000 INTLU TAB PO SCH (10:38)
[2018-04-12] MEDS: Levothyroxine 75 MCG TAB PO SCH (10:38)
--- NOTE | 2018-04-12 10:51 | PN ---
DATE: 04/12/2018 SUBJECTIVE: The patient is seen lying in bed on telemetry. She is scheduled for cardiac catheterization this morning. She had no chest pain overnight. Her potassium was 5.7 and she was treated Kayexalate, creatinine was slightly high at 2.1 and she has been placed on IV fluid hydration. MEDICATIONS: Her current medications include Cozaar 100 mg daily Ecotrin, Breo Ellipta, insulin coverage, Lipitor 40 mg daily, metoprolol 50 mg b.i.d., Lialda, Plavix 75 mg daily, Synthroid, Veltassa, and Zyloprim. OBJECTIVE: GENERAL: She is a overweight elderly woman. VITAL SIGNS: Blood pressure is 130/76 with pulse 72 and sinus, respirations are 14. She is afebrile. HEENT: Normocephalic, atraumatic. NECK: Supple. No JVD noted. CHEST: Clear to auscultation and percussion. HEART: PMI normal position. No pathological gallops noted. ABDOMEN: Soft, mildly obese, nontender, normoactive bowel sounds. EXTREMITIES: No edema. DIAGNOSTIC DATA: Potassium 5.7, repeat is pending, BUN and creatinine 36 and 2.1, glucose is 212. White count 5.4, hemoglobin and hematocrit 11.5 and 34.9 with platelet count of 161,000. IMPRESSION: 1. Apparent [id number] elevation myocardial infarction. 2. Known coronary disease status post prior percutaneous coronary intervention of left anterior descending. 3. History of hypertension, diabetes. 4. Chronic renal insufficiency. 5. Rest of problems as noted. RECOMMENDATIONS: The patient is scheduled for a cardiac catheterization this morning with possible PCI should a suitable anatomy be found. The risks and benefits of the procedure have been discussed in detail with the patient including a increased risk of worsening renal insufficiency with dye exposure and the potential need for dialysis should contrast nephropathy be severe, she is agreeable to proceed. Further recommendations will be based upon those findings. Vince Guadarrama MD
--- NOTE | 2018-04-12 11:24 | CP.PCM.PN ---
<Efrain Tilley - Last Filed: 04/12/18 11:29> Subjective - Date & Time of Evaluation Date of Evaluation: 04/12/18 Time of Evaluation: 07:30 - Subjective Subjective: Medicine progress note: Patient seen and examined at bedside. No acute events overnight. Patient just returned from cardiac catheterization. She complains of mild back pain however no other complaints. 12 point ROS performed and negative other than as stated above Objective - Vital Signs/Intake and Output Vital Signs (last 24 hours): Temp Pulse Resp BP Pulse Ox 97.4 F L 73 20 131/76 96 04/12/18 06:00 04/12/18 06:00 04/12/18 06:00 04/12/18 06:00 04/12/18 06:00 Intake and Output: 04/12/18 04/12/18 06:59 18:59 Intake Total 1270 Balance 1270 - Medications Medications: Current Medications Allopurinol (Zyloprim) 300 mg PO DAILY [facility] Last Admin: 04/12/18 10:38 Dose: 300 mg Aspirin (Ecotrin) 81 mg PO DAILY [facility] Last Admin: 04/12/18 10:15 Dose: Not Given Atorvastatin Calcium (Lipitor) 40 mg PO DIN [facility] Last Admin: 04/11/18 17:32 Dose: 40 mg Chlorthalidone (Hygroton) 25 mg PO DAILY [facility] Last Admin: 04/11/18 12:52 Dose: 25 mg Cholecalciferol (Vitamin D) 1,000 intlu PO DAILY [facility] Last Admin: 04/12/18 10:38 Dose: 1,000 intlu Clopidogrel Bisulfate (Plavix) 75 mg PO DAILY [facility] Last Admin: 04/12/18 10:25 Dose: Not Given Sodium Chloride (Sodium Chloride 0.9%) 1,000 mls @ 100 mls/hr IV .Q10H [facility] Stop: 04/12/18 14:00 Last Admin: 04/12/18 01:29 Dose: 100 mls/hr Insulin Human Lispro (Humalog Med) 0 units SC ACHS [facility]; Protocol Last Admin: 04/12/18 07:30 Dose: Not Given Insulin Lispro Protam/Lispro Human (Humalog Mix 75/25) 40 units SC BID [facility] Last Admin: 04/11/18 17:40 Dose: 40 units Levothyroxine Sodium (Synthroid) 75 mcg PO DAILY [facility] Last Admin: 04/12/18 10:38 Dose: 75 mcg Losartan Potassium (Cozaar) 100 mg PO DAILY [facility] Last Admin: 04/12/18 10:42 Dose: 100 mg Metoprolol Tartrate (Lopressor) 50 mg PO BRKDIN [facility] Last Admin: 04/11/18 17:32 Dose: 50 mg Non-Formulary Medication (Acetaminophen/Diphenhydramine [Tylenol Pm Ex-Strength Caplet]) 1 tab PO HS [facility] Last Admin: 04/11/18 22:32 Dose: Not Given Non-Formulary Medication (Fluticasone/Vilanterol 100/25 [Breo Ellipta 100-25 Mcg Inh]) 1 puff IH DAILY [facility] Last Admin: 04/12/18 10:16 Dose: Not Given Non-Formulary Medication (Mesalamine [Lialda]) 1.2 gm PO DAILY [facility] Last Admin: 04/12/18 10:24 Dose: Not Given Patiromer (Veltassa) 8.4 gm PO DAILY [facility] Last Admin: 04/12/18 10:42 Dose: 8.4 gm - Labs Labs: 04/12/18 04:10 04/12/18 04:10 APTT 94.1 Seconds (26.9-38.3) H 04/12/18 04:10 - Constitutional Appears: No Acute Distress - Head Exam Head Exam: ATRAUMATIC, NORMOCEPHALIC - Eye Exam Eye Exam: EOMI, PERRL - ENT Exam ENT Exam: Mucous Membranes Moist - Respiratory Exam Respiratory Exam: Clear to Ausculation Bilateral. absent: Rales, Wheezes - Cardiovascular Exam Cardiovascular Exam: REGULAR RHYTHM, RRR, +S1, +S2 - GI/Abdominal Exam GI & Abdominal Exam: Soft. absent: Distended, Tenderness - Extremities Exam Extremities Exam: absent: Calf Tenderness, Pedal Edema Additional comments: No bleeding in the groin site - Neurological Exam Neurological Exam: Alert, Awake, Oriented x3 - Psychiatric Exam Psychiatric exam: Normal Mood - Skin Skin Exam: Dry, Warm Assessment and Plan - Assessment and Plan (Free Text) Assessment: 1. NSTEMI 2. Coronary artery disease with stent placement 3. CKD stage 4 4. Insulin-dependent diabetes type 2 5. GERD 6. Hypomagnesium 7. Hyperuricemia 8. Hypothyroidism 9. HTN 10. Hyperkalemia 5.7 Patient went for cardiac catheterization today, awaiting official report from cardiology, reportedly no stents placed. For her CAD continue with aspirin and Plavix daily. Patient also is on metoprolol. CKD stage 4, Patient is at risk for contrast-induced nephropathy, follow-up BMP at 6 PM. Cont with NS @ 100. For her hyperkalemia Kayexalate 30 mg was given, follow-up BMP at 6 PM. For her diabetes will resume her home insulin. For her hyperuricemia will resume her home allopurinol. For her hypothyroidism we will resume her Synthroid. For her hypertension we will resume her chlorthalidone and losartan. Hypomagnesium was repleted with mag sulfate 2gm x 1. For her GERD will resume her Protonix. Heart healthy diet. Cont to monitor for any changes. Case and plan was reviewed and discussed with Dr Torrez. <Sridhar Torrez S - Last Filed: 04/12/18 16:11> Objective - Vital Signs/Intake and Output Vital Signs (last 24 hours): Temp Pulse Resp BP Pulse Ox 98.2 F 68 20 160/64 H 96 04/12/18 12:00 04/12/18 12:00 04/12/18 12:00 04/12/18 12:00 04/12/18 06:00 Intake and Output: 04/12/18 04/12/18 06:59 18:59 Intake Total 1270 Balance 1270 - Medications Medications: Current Medications Allopurinol (Zyloprim) 300 mg PO DAILY [facility] Last Admin: 04/12/18 10:38 Dose: 300 mg Aspirin (Ecotrin) 81 mg PO DAILY [facility] Last Admin: 04/12/18 10:15 Dose: Not Given Atorvastatin Calcium (Lipitor) 40 mg PO DIN [facility] Last Admin: 04/11/18 17:32 Dose: 40 mg Chlorthalidone (Hygroton) 25 mg PO DAILY [facility] Last Admin: 04/11/18 12:52 Dose: 25 mg Cholecalciferol (Vitamin D) 1,000 intlu PO DAILY [facility] Last Admin: 04/12/18 10:38 Dose: 1,000 intlu Clopidogrel Bisulfate (Plavix) 75 mg PO DAILY [facility] Last Admin: 04/12/18 10:25 Dose: Not Given Insulin Human Lispro (Humalog Med) 0 units SC [facility]; Protocol Last Admin: 04/12/18 12:30 Dose: Not Given Insulin Lispro Protam/Lispro Human (Humalog Mix 75/25) 40 units SC BID [facility] Last Admin: 04/12/18 10:30 Dose: Not Given Levothyroxine Sodium (Synthroid) 75 mcg PO DAILY [facility] Last Admin: 04/12/18 10:38 Dose: 75 mcg Losartan Potassium (Cozaar) 100 mg PO DAILY [facility] Last Admin: 04/12/18 10:42 Dose: 100 mg Metoprolol Tartrate (Lopressor) 50 mg PO BRKDIN [facility] Last Admin: 04/12/18 07:30 Dose: Not Given Non-Formulary Medication (Acetaminophen/Diphenhydramine [Tylenol Pm Ex-Strength Caplet]) 1 tab PO HS [facility] Last Admin: 04/11/18 22:32 Dose: Not Given Non-Formulary Medication (Fluticasone/Vilanterol 100/25 [Breo Ellipta 100-25 Mcg Inh]) 1 puff IH DAILY [facility] Last Admin: 04/12/18 10:16 Dose: Not Given Non-Formulary Medication (Mesalamine [Lialda]) 1.2 gm PO DAILY [facility] Last Admin: 04/12/18 10:24 Dose: Not Given Patiromer (Veltassa) 8.4 gm PO DAILY [facility] Last Admin: 04/12/18 10:42 Dose: 8.4 gm - Labs Labs: 04/12/18 04:10 04/12/18 04:10 APTT 94.1 Seconds (26.9-38.3) H 04/12/18 04:10 Assessment and Plan - Assessment and Plan (Free Text) Assessment: Pt seen and examined by me. I have reviewed the note of the director global medical affairs and I agree with it. I have discussed the assessment and plan with the resident. I have reviewed the medications and the last labs.
[2018-04-12 17:47] LABS: CALCIUM 9.1 mg/dL (8.4-10.5)
--- NOTE | 2018-04-12 19:34 | PN ---
DATE: 04/12/2018 SUBJECTIVE: The patient has no complaints of any headaches or dizziness. While with the patient, I reviewed the notes of the medical care manager and I do agree with the notes. The patient's plan of care was discussed with the resident. I spoke with Dr. Guadarrama after the patient's cardiac cath. The patient does have a history of CKD, and has got risk of contrast nephropathy. She has been on IV fluids since yesterday. PLAN: She is going to have repeat blood work tomorrow. She is on allopurinol for her hyperuricemia. The patient had magnesium replaced for her hypomagnesemia. She is on Protonix for her GERD. The patient is on aspirin and Plavix for her coronary disease. She had elevated troponin. She did not have an ST elevation VT. She did have acute coronary syndrome with unstable angina. Sridhar Torrez MD
--- NOTE | 2018-04-12 20:36 | CARDCATH ---
PROCEDURE DATE: 04/12/2018 PROCEDURES: 1. Selective left and right coronary angiography. 2. Left ventriculography. 3. Fractional flow reserve measurement in left anterior descending. 4. Right femoral arteriography. 5. Angio-Seal deployment. HISTORY: This is an 78-year-old woman with known coronary disease, status post prior PCI who was admitted with acute coronary syndrome. Cardiac catheterization was advised. INDICATIONS: 1. Non-ST segment elevation myocardial infarction. 2. Known coronary artery disease. FINDINGS: HEMODYNAMICS: The aortic pressure was 160/70, left ventricular pressure 160/14. CORONARY ANATOMY: 1. The left mainstem was short and normal. 2. The left anterior descending artery has a widely patent stent in its proximal and early mid segment of the vessel with no evidence of significant in-stent restenosis. In the mid segment of the vessel before, then there was a 60% lesion which appeared somewhat hazy. The distal LAD had mild diffuse disease. The diagonal branches had evidence of mild proximal disease. One diagonal branch had evidence of severe diffuse in a sub branch. 3. The left circumflex artery had mild proximal stenosis and gave rise to one moderate-sized obtuse marginal branch. The circumflex and obtuse marginal branch was relatively free of disease. 4. The right coronary artery was large and dominant. This had 40% irregular lesions in its proximal segment with no evidence of high-grade stenosis. The distal vessel had no significant disease. CORONARY EVALUATION: 1. A 3.5 EBU guide catheter was utilized and 4000 units of intravenous heparin was administered to given an ACT of greater than 250 seconds. A coronary flow wire was advanced beyond the LAD lesion, and IV adenosine was administered for two minutes. Constant aortic and distal wire pressures were measured. The fractional flow reserve measured 0.82. Given this, it was felt that the LAD lesion was not hemodynamically significant. LEFT VENTRICULOGRAPHY: A left hand injection was performed on the left ventricle and this revealed normal wall motion with an ejection fraction of 60%. RIGHT FEMORAL ARTERIOGRAPHY: A right femoral arteriogram was performed in the MORENO projection. This revealed no evidence of significant disease and appropriate level of arterial puncture. The puncture site was then closed with deployment of an Angio-Seal device. CONCLUSION: 1. Patent LAD stent. 2. Moderate mid LAD stenosis which did not appear functionally significant based on fractional flow reserve measurement. 3. Normal LV systolic function. 4. Mild proximal RCA disease. RECOMMENDATIONS: Given the above findings, intensified medical therapy is advised. Aspirin and Plavix therapy will be continued as tolerated. Beta prisca therapy and statin therapy will be resumed. If needed, further antianginal therapy with nitrates can be initiated. Followup measurement of her renal function will be planned for the morning. If she remains stable, discharge home within next 24 hours would be reasonable. Close outpatient followup will be arranged. Vince Guadarrama MD cc: MD Nick Yeager MD [facility] # [id number] MTDD
[2018-04-12 23:42] VITALS: RESP 18; O2SAT 95
[2018-04-13 05:14] VITALS: TEMP 98.1
[2018-04-13 07:22] LABS: BASO # 0.01 K/mm3 (0.0-2.0); BASO % 0.2 % (0.0-3.0); EOS % 0.5 % (1.5-5.0); HEMOGLOBIN 11.2 g/dL (12.0-16.0); LYMPH # 1.1 (1.2-3.4); LYMPH % 19.2 % (22.0-35.0); MEAN CELL VOLUME 93.5 fl (80.0-105.0); MEAN CORPUSCULAR HEMOGLOBIN 30.5 pg (25.0-35.0); MEAN CORPUSCULAR HGB CONC 32.7 g/dl (31.0-37.0); MONO # 0.9 (0.1-0.6); MONO % 15.1 % (1.0-6.0); RBC 3.67 10^6/uL (3.5-6.1); RED CELL DISTRIBUTION WIDTH 14.6 % (11.5-14.5); WHITE BLOOD COUNT 5.9 10^3/uL (4.5-11.0)
[2018-04-13 07:44] LABS: ALB/GLOB RATIO 1.1 (1.1-1.8); ALBUMIN 3.8 g/dL (3.0-4.8); CALCIUM 9.6 mg/dL (8.4-10.5)
[2018-04-13] MEDS: Insulin Lispro (humaLOG) MEDIUM Coverage SC SCH (08:04)
[2018-04-13 08:05] VITALS: BP 116/77
[2018-04-13] MEDS: Levothyroxine 75 MCG TAB PO SCH (10:39)
[2018-04-13] MEDS: Insulin Lispro (humaLOG) MIX 75/25(10 ml) SC SCH ×2 (10:39→10:50)
[2018-04-13] MEDS: MESALAMINE 1.2 GM PO SCH (10:40)
[2018-04-13] MEDS: Cholecalciferol 1,000 INTLU TAB PO SCH (10:41)
[2018-04-13] MEDS: Non Formulary Medication (Fluticasone/Vilanterol 100/25 [Breo Ellipta 100-25 Mcg Inh] 1 PU IH SCH (10:43)
--- NOTE | 2018-04-13 11:10 | DS ---
HISTORY OF PRESENT ILLNESS: The patient has no complaint of any chest pain or shortness of breath or headaches or dizziness. The patient was initially admitted to hospital because of unstable angina, was having elevated troponin and chest pain. She had improvement of her symptoms. She was taken to the analytical lab analyst. No intervention was done. The patient tolerated procedure well. PHYSICAL EXAMINATION VITAL SIGNS: Temperature 98.1, pulse of 61, blood pressure 124/55, respirations 18 and O2 saturation 95%. GENERAL: The patient is lying in bed, flat, comfortable. HEENT: No oral lesion. Anicteric sclerae. Moist mucosa. NECK: No JVD, adenopathy, or thyromegaly. CARDIOVASCULAR: S1 and S2, regular. No murmurs, rubs, or gallops. LUNGS: Clear to auscultation bilaterally. No wheeze, rales, or rhonchi. ABDOMEN: Bowel sounds are positive, soft, nontender and nondistended. EXTREMITIES: No cyanosis, clubbing or edema. ASSESSMENT: 1. Unstable angina/acute coronary syndrome. 2. Coronary artery disease with stents. 3. Chronic kidney disease stage IV. 4. Diabetes type 2. 5. Gastroesophageal reflux disease. 6. Hypomagnesemia, improved. 7. Hyperuricemia, improved. 8. Hypothyroidism. 9. Hypertension. 10. Hyperkalemia. PLAN: The patient is currently comfortable. The creatinine is stable. No signs of contrast nephropathy. She was hydrated well. The patient's potassium is improved as well. She has no complaints of any symptoms. The patient is currently on losartan for her hypertension. She is on insulin sliding scale as well as lispro for her diabetes type 2. She is receiving chlorthalidone for blood pressure. She is on Lipitor for dyslipidemia. She is on Plavix for her coronary disease. The patient is on allopurinol. CONDITION: Stable. ACTIVITIES: Increase as tolerated. FOLLOWUP: 1. With Dr. Guadarrama in 1-[address] Hoffman in 1 week. Sridhar Torrez MD
[2018-04-13 11:47] VITALS: PULSE 73
--- NOTE | 2018-04-15 08:32 | PN ---
DATE: 04/13/2018 SUBJECTIVE: The patient is seen sitting in chair on telemetry. She is comfortable at the present time. She had a brief episode of chest discomfort yesterday which she felt was secondary to cervical neck issues. Her pain did not feel like her typical angina. Cardiac catheterization yesterday revealed a patent LAD stent with evidence of moderate mid LAD lesion as well as a [id number] RCA disease. Medical therapy was advised. Her current medications include aspirin, Plavix, Cozaar 100 mg daily, Breo Ellipta, insulin, chlorthalidone, Lipitor, metoprolol 50 mg b.i.d., Lialda, Synthroid, Veltassa, and Zyloprim. OBJECTIVE: GENERAL: She is an elderly woman, who appears comfortable at the present time. VITAL SIGNS: Blood pressure 124/60 with pulse of 60 in sinus, respirations are 14. She is afebrile. HEENT: No JVD. CHEST: Few scattered rhonchi heard. HEART: No pathologic murmur or gallops heard. ABDOMEN: Soft, obese, nontender, normoactive bowel sounds. EXTREMITIES: No edema. DIAGNOSTIC DATA: Potassium 4.7, BUN and creatinine at 27 and 1.7, glucose 174. White count 5.9, hemoglobin and hematocrit 11.2 and 34.3 with platelet count 157,000. IMPRESSION: 1. Recent acute coronary syndrome with no evidence of high-grade coronary disease on catheterization. 2. Known coronary artery disease, status post prior percutaneous coronary intervention. 3. Chronic renal insufficiency, unchanged following contrast exposure. 4. Rest of problems as noted. RECOMMENDATIONS: From a cardiac standpoint, she appears stable for discharge home today. Continued medical therapy will be planned for now. Aggressive risk factor control will continue. She will remain on Plavix if tolerated. Outpatient followup has been arranged. Vince Guadarrama MD
== END 2018-04-13 12:25 | disposition home or self-care (01) | DRG 281 ==
LOC: ED 19:59 → ERH 21:48 → 2RNO 04-11 01:47 → OBSVTOIN 04-11 14:54 → 2RSO 04-12 09:24
PROVIDERS: ADMIT Internal Medicine Nephrology; ATTEND Internal Medicine Nephrology
PROC: 4A023N7 Measurement of Cardiac Sampling and Pressure, Left Heart, Percutaneous Approach (ICD-10-PCS; principal; 2018-04-12)
PROC: B211YZZ Fluoroscopy of Multiple Coronary Arteries using Other Contrast (ICD-10-PCS; 2018-04-12)
PROC: B215YZZ Fluoroscopy of Left Heart using Other Contrast (ICD-10-PCS; 2018-04-12)
PROC: 4A033BC Measurement of Arterial Pressure, Coronary, Percutaneous Approach (ICD-10-PCS; 2018-04-12)
DX: I21.4 Non-ST elevation (NSTEMI) myocardial infarction (principal); N18.4 Chronic kidney disease, stage 4 (severe); I25.110 Atherosclerotic heart disease of native coronary artery with unstable angina pectoris; I12.9 Hypertensive chronic kidney disease with stage 1 through stage 4 chronic kidney disease, or unspecified chronic kidney disease; E11.22 Type 2 diabetes mellitus with diabetic chronic kidney disease; E03.9 Hypothyroidism, unspecified; E83.42 Hypomagnesemia; K21.9 Gastro-esophageal reflux disease without esophagitis; E79.0 Hyperuricemia without signs of inflammatory arthritis and tophaceous disease; E78.5 Hyperlipidemia, unspecified; E87.5 Hyperkalemia; I44.0 Atrioventricular block, first degree; Z95.5 Presence of coronary angioplasty implant and graft; Z79.890 Hormone replacement therapy; Z79.899 Other long term (current) drug therapy; Z79.82 Long term (current) use of aspirin; Z87.891 Personal history of nicotine dependence; Z79.4 Long term (current) use of insulin; Z98.1 Arthrodesis status

== ENCOUNTER 2018-04-29 08:55 | Day surgery (SDC) | payer MEDICARE, BC ==
[2018-04-22 16:45] VITALS: BMI 36.8
[2018-04-29] MEDS ORDERED: Propofol 10 mg/ml Inj (20 ML) ONE (10:38)
[2018-04-29] MEDS ORDERED: Etomidate 20 mg/10ml Inj IV ONE (11:09)
[2018-04-29] MEDS ORDERED: Sodium Chloride 0.9% 1,000 ML IV SCH (11:15)
[2018-04-29 11:34] VITALS: O2SAT 96
[2018-04-29 14:39] VITALS: BP 173/77; PULSE 66; RESP 15; TEMP 97.4
== END 2018-04-29 12:48 | disposition home or self-care (01) ==
LOC: ENDO 08:55
PROVIDERS: ATTEND Internal Medicine Gastroenterology
DX: K25.9 Gastric ulcer, unspecified as acute or chronic, without hemorrhage or perforation (principal); K44.9 Diaphragmatic hernia without obstruction or gangrene; K20.9 Esophagitis, unspecified; K31.7 Polyp of stomach and duodenum
CPT/HCPCS: 43235; 82948; J2001; J2704; J7030; J7040